=== PATIENT | female | born 1965 | race Caucasian/White ===

== ENCOUNTER 2018-06-06 17:20 | Emergency (ER) | payer BC ==
--- OUTSIDE RECORDS SUMMARY | 2018-06-06 17:24 | XMS REPORT | Clinical Summary ---
:1965 Author Organization [facility] Address [address] [place] [address] Care Team Providers Name Role Phone Soham Mitchell Primary Care Provider Allergies No Known Allergies Medications Medication Sig Dispensed Refills Start End Date Status Date lamoTRIgine Take 200 mg by 0 Active (LAMICTAL) 200 MG mouth daily . tabletIndications: at night busPIRone (BUSPAR) Take 50 mg by 0 Active 10 MG tablet mouth 4 (four) times daily as needed . ALPRAZolam (XANAX) Take 0.5 mg by 0 Active 0.5 MG tablet mouth every night as needed for Anxiety. ondansetron Take 4 mg by 0 Active (ZOFRAN) 4 MG mouth 2 (two) tablet times daily as needed for Nausea. metoclopramide HCl Take 1 tablet (10 100 tablet 0 06/16/19 Active (REGLAN) 10 MG mg total) by 9 19 tablet mouth 4 (four) times daily as needed for Nausea for up to 10 days. butalbital-acetamin Take 1 tablet by 30 tablet 0 12/01/19 ophen-caffeine mouth every 6 8 18 (FIORICET, ESGIC) (six) hours as 50-325-40 mg per needed for tablet Headaches for up to 10 days. meclizine Take 1 tablet (25 30 tablet 0 12/01/19 (ANTIVERT) 25 mg mg total) by 8 18 tablet mouth 3 (three) times daily as needed for Dizziness for up to 10 days. ciprofloxacin HCl Take 1 tablet 3 tablet 0 05/08/19 Discontinued (CIPRO) 250 MG (250 mg total) by 8 19 tablet mouth every 12 (twelve) hours. HYDROcodone-acetami Take 2 tablets by 20 tablet 0 12/06/19 nophen (NORCO mouth every 4 8 18 5-325) 5-325 mg per (four) hours as tablet needed for up to 10 days. Max Daily Amount: 12 tablets ondansetron Take 1 tablet (4 20 tablet 0 12/06/19 (ZOFRAN) 4 MG mg total) by 8 18 tablet mouth 3 (three) times daily as needed for Nausea for up to 10 days. docusate sodium Take 1 capsule 30 capsule 1 05/30/19 (COLACE) 100 MG (100 mg total) by 9 19 capsule mouth 2 (two) times daily as needed for Constipation for up to 10 days. ibuprofen Take 1 tablet 30 tablet 1 05/30/19 (ADVIL,MOTRIN) 600 (600 mg total) by 9 19 MG tablet mouth every 6 (six) hours as needed for Pain for up to 10 days. simethicone Take 1 tablet (80 30 tablet 1 05/30/19 (MYLICON) 80 MG mg total) by 9 19 chewable tablet mouth every 6 (six) hours as needed for Flatulence for up to 10 days. acetaminophen-codei Take 1 tablet by 30 tablet 0 05/30/19 ne (TYLENOL #3) mouth every 4 9 19 300-30 mg per (four) hours as tablet needed for Pain for up to 10 days. Max Daily Amount: 6 tablets ondansetron Take 1 tablet (4 20 tablet 0 05/27/19 (ZOFRAN-ODT) 4 MG mg total) by 9 19 disintegrating mouth every 8 tablet (eight) hours as needed for Nausea for up to 7 days. ibuprofen Take 800 mg by 0 06/06/19 Discontinued (ADVIL,MOTRIN) 800 mouth every 6 19 MG tablet (six) hours as needed for Pain. Active Problems Problem Noted Date Abdominal pain, unspecified abdominal location 06/01/2018 Partial small bowel obstruction 06/01/2018 Hypokalemia 06/01/2018 Endometriosis 05/19/2018 Hx of bilateral oophorectomy 05/19/2018 Hx of total hysterectomy 05/19/2018 Pelvic pain 05/19/2018 Calculus of gallbladder with acute on chronic cholecystitis without 11/22/2017 obstruction Encounters Date Type Specialty Care Team Description 06/03/2018 Orders Only General Internal Medicine 06/01/2018 - Hospital Encounter General Internal Torito Crowell Abdominal pain, unspecified abdominal location (Primary Dx); 06/05/2018 Medicine MD Seth Intractable cyclical vomiting with nausea; Abran, Small bowel obstruction (HCC); MD Homer Diarrhea, unspecified type 06/01/2018 Travel 05/19/2018 Anesthesia Event Travis Schwarz MD 05/19/2018 Surgery Laine Ballesteros ROBOTIC MD LAPAROSCOPY,RESECTION ENDOMETRIAL SINGLE INCISION (SILS) 05/19/2018 - Hospital Encounter General Internal Laine Ballesteros, 05/22/2018 Medicine 05/08/2018 Hospital Encounter Pre-Admission Resource, Oqmt Testing Preadmit Phone 01/14/2018 Outside Orders Eliezer Lee female exam with routine gynecological exam (Primary Dx); MD Kaia Encounter for screening mammogram for malignant neoplasm of breast 12/02/2017 Orders Only Dorothy Salomon 11/23/2017 Anesthesia Event Anuel Viveros MD 11/23/2017 Surgery Renato Lemus LAPAROSCOPY,CHOLECYST MD Jacobo ECTOMY W/GRAMS 11/22/2017 - Emergency General Internal Ritchie Branch Calculus of gallbladder with acute on chronic cholecystitis without obstruction (Primary Dx) ; 11/25/2017 Idalia Ferguson MD Pancreatic mass; Chetna Mendez Generalized anxiety disorder; MD Aundrea Hypokalemia; Non-intractable vomiting with nausea, unspecified vomiting type; RUQ abdominal pain 11/22/2017 Orders Only General Internal Medicine 11/20/2017 Emergency Emergency Froy Lima Dizziness (Primary Dx); Idalia Damon MD Epigastric abdominal pain; Abnormal CT of the abdomen 11/20/2017 Orders Only General Internal Medicine after 06/05/2017 Social History Tobacco Use Types Packs/Day Years Used Date Current Some Day Smoker Smokeless Tobacco: Never Used Comments: electronic cigarette for one year/// been smoking since 16 yrs old Alcohol Use Drinks/Week oz/Week Comments Yes Socially Sex Assigned at Date Recorded Not on file Job Start Date Occupation Industry Not on file Not on file Not on file Travel History Travel Start Travel End No recent travel history available. Last Filed Vital Signs Vital Sign Reading Time Taken Blood Pressure 115/75 06/05/2018 11:23 AM CDT Pulse 84 06/05/2018 11:23 AM CDT Temperature 35.9 C (96.7 F) 06/05/2018 11:23 AM CDT Respiratory Rate 18 06/05/2018 11:23 AM CDT Oxygen Saturation 96% 06/05/2018 11:23 AM CDT Inhaled Oxygen Concentration - - Weight 66.5 kg (146 lb 11.2 oz) 06/01/2018 9:23 PM CDT Height 165.1 cm (5' 5") 06/01/2018 9:23 PM CDT Body Mass Index 24.41 06/01/2018 9:23 PM CDT Plan of Treatment Not on file Implants Implanted Type Area Paraprofessional Aide Device Shelf Model / Serial Identifier Expiration / Lot Date Barrier Adh Intceed 3x4 In 4350 - [id number] IMPLANTS N/A: J &J:ETHICON 4350 / Implanted: Qty: 2 on 05/19/2018 by Laine Blalesteros MD Peritoneum / [id number] Sys Halo Obtryx Ii [id number] - [id number] IMPLANTS N/A: Bladder [place] 12/21/2020 [id number] / Implanted: Qty: 1 on 05/19/2018 by Laine Ballesteros MD SCI:UROLOGY/GY [id number] / NECOLOGY [id number] Procedures Procedure Name Priority Date/Time Associated Comments Diagnosis C. DIFFICILE [facility] Routine 06/04/2018 8:24 Results for this TOXIN PM CDT procedure are in the results section. CBC W/PLT COUNT & Routine 06/04/2018 3:39 Results for this AUTO DIFFERENTIAL AM CDT procedure are in the results section. MAGNESIUM Routine 06/04/2018 3:39 Results for this AM CDT procedure are in the results section. CBC W/PLT COUNT & Routine 06/04/2018 3:39 Results for this AUTO DIFFERENTIAL AM CDT procedure are in the results section. PHOSPHORUS Routine 06/04/2018 3:39 Results for this AM CDT procedure are in the results section. CALCIUM, IONIZED Routine 06/04/2018 3:39 Results for this AM CDT procedure are in the results section. BASIC METABOLIC PANEL Routine 06/04/2018 3:39 Results for this (7) AM CDT procedure are in the results section. ECG 12-LEAD Routine 06/03/2018 3:40 AM CDT Procedure Note - Interface, External Ris In - 06/03/2018 3:54 AM CDT Ventricular Rate 81 BPM Atrial Rate 81 BPM P-R Interval 162 ms QRS Duration 84 ms Q-T Interval 362 ms QTC Calculation(Bazett) 420 ms P [place] 61 degrees R [place] 61 degrees T [place] 59 degrees Normal sinus rhythm Normal ECG When compared with ECG of 22-NOV-2017 12:18, No significant change was found ECG 12-LEAD Routine 06/03/2018 3:40 AM Results for this CDT procedure are in the results section. CBC W/PLT COUNT & AUTO Routine 06/03/2018 3:30 AM Results for this DIFFERENTIAL CDT procedure are in the results section. TROPONIN I Routine 06/03/2018 3:30 AM Results for this CDT procedure are in the results section. CBC W/PLT COUNT & AUTO Routine 06/03/2018 3:30 AM Results for this DIFFERENTIAL CDT procedure are in the results section. MAGNESIUM Routine 06/03/2018 3:30 AM Results for this CDT procedure are in the results section. PHOSPHORUS Routine 06/03/2018 3:30 AM Results for this CDT procedure are in the results section. CALCIUM, IONIZED Routine 06/03/2018 3:30 AM Results for this CDT procedure are in the results section. BASIC METABOLIC PANEL Routine 06/03/2018 3:30 AM Results for this (7) CDT procedure are in the results section. CBC W/PLT COUNT & AUTO Routine 06/02/2018 6:38 AM Results for this DIFFERENTIAL CDT procedure are in the results section. TSH/FREE T4 IF Routine 06/02/2018 6:38 AM Results for this INDICATED CDT procedure are in the results section. MAGNESIUM Routine 06/02/2018 6:38 AM Results for this CDT procedure are in the results section. CBC W/PLT COUNT & AUTO Routine 06/02/2018 6:38 AM Results for this DIFFERENTIAL CDT procedure are in the results section. PHOSPHORUS Routine 06/02/2018 6:38 AM Results for this CDT procedure are in the results section. CALCIUM, IONIZED Routine 06/02/2018 6:38 AM Results for this CDT procedure are in the results section. BASIC METABOLIC PANEL Routine 06/02/2018 6:38 AM Results for this (7) CDT procedure are in the results section. URINALYSIS W/ STAT 06/02/2018 3:26 AM Results for this MICROSCOPIC CDT procedure are in the results section. XR ABDOMEN 1 VIEW STAT 06/01/2018 11:07 PM Results for this CDT procedure are in the results section. CT ABDOMEN/PELVIS WITH STAT 06/01/2018 4:17 PM Results for this IV CONTRAST CDT procedure are in the results section. CBC W/PLT COUNT & AUTO STAT 06/01/2018 12:28 PM Results for this DIFFERENTIAL CDT procedure are in the results section. BASIC METABOLIC PANEL STAT 06/01/2018 12:28 PM Results for this (7) CDT procedure are in the results section. CBC W/PLT COUNT & AUTO STAT 06/01/2018 12:28 PM Results for this DIFFERENTIAL CDT procedure are in the results section. ALKALINE PHOSPHATASE STAT 06/01/2018 12:28 PM Results for this CDT procedure are in the results section. LIPASE STAT 06/01/2018 12:28 PM Results for this CDT procedure are in the results section. AST (SGOT) STAT 06/01/2018 12:28 PM Results for this CDT procedure are in the results section. ALT (SGPT) STAT 06/01/2018 12:28 PM Results for this CDT procedure are in the results section. RHYTHM STRIP - SCAN 05/26/2018 5:50 AM CDT TRANSFUSION SERVICE 05/20/2018 6:24 PM REPORT - SCAN SURVEY STATISTICIAN CBC W/PLT COUNT & AUTO Routine 05/20/2018 4:55 AM Results for this DIFFERENTIAL SURVEY STATISTICIAN procedure are in the results section. COMPREHENSIVE METABOLIC Routine 05/20/2018 4:55 AM Results for this PANEL SURVEY STATISTICIAN procedure are in the results section. CBC W/PLT COUNT & AUTO Routine 05/20/2018 4:55 AM Results for this DIFFERENTIAL SURVEY STATISTICIAN procedure are in the results section. BASIC METABOLIC PANEL Routine 05/19/2018 6:16 PM Results for this (7) SURVEY STATISTICIAN procedure are in the results section. ABORH, MANUAL STAT 05/19/2018 11:16 AM Results for this SURVEY STATISTICIAN procedure are in the results section. POCT-HEMOGLOBIN METER Routine 05/19/2018 11:02 AM Results for this SURVEY STATISTICIAN procedure are in the results section. CYSTOSCOPY 05/19/2018 10:55 AM Chronic female SURVEY STATISTICIAN pelvic pain Case Notes 3 HRS PER ANTHONY Special Needs (DAVINCI XI - XI ROBOT) SLING,PUBO VAGINAL 05/19/2018 10:55 AM SURVEY STATISTICIAN Chronic female pelvic pain Case Notes 3 HRS PER ANTHONY Special Needs (DAVINCI XI - XI ROBOT) PROCEDURE W/ DAVINCI XI 05/19/2018 10:55 AM SURVEY STATISTICIAN Chronic female pelvic pain Case Notes 3 HRS PER ANTHONY Special Needs (DAVINCI XI - XI ROBOT) LYSIS,ADHESIONS PERITONEAL 05/19/2018 10:55 AM SURVEY STATISTICIAN Chronic female pelvic pain Case Notes 3 HRS PER ANTHONY Special Needs (DAVINCI XI - XI ROBOT) ROBOTIC LAPAROSCOPY,RESECTION 05/19/2018 10:55 AM SURVEY STATISTICIAN Chronic female pelvic ENDOMETRIAL SINGLE INCISION (SILS) pain Case Notes 3 HRS PER ANTHONY Special Needs (DAVINCI XI - XI ROBOT) TYPE AND SCREEN, Routine 05/19/2018 10:53 AM Results for this AUTOMATED SURVEY STATISTICIAN procedure are in the results section. RHYTHM STRIP - SCAN 11/26/2017 2:20 PM CDT MR ABDOMEN WITH/WITHOUT BRITTANY 11/25/2017 10:59 AM Results for this IV CONTRAST CDT procedure are in the results section. CBC (HEMOGRAM ONLY) Routine 11/25/2017 4:24 AM Results for this CDT procedure are in the results section. HEPATIC FUNCTION PANEL Routine 11/25/2017 4:24 AM Results for this CDT procedure are in the results section. BASIC METABOLIC PANEL Routine 11/25/2017 4:24 AM Results for this (7) CDT procedure are in the results section. CBC (HEMOGRAM ONLY) Routine 11/24/2017 4:18 AM Results for this CDT procedure are in the results section. HEPATIC FUNCTION PANEL Routine 11/24/2017 4:18 AM Results for this CDT procedure are in the results section. BASIC METABOLIC PANEL Routine 11/24/2017 4:18 AM Results for this (7) CDT procedure are in the results section. ED ECG INTERPRETATION Routine 11/23/2017 9:13 AM Results for this CDT procedure are in the results section. FL THEATRICAL AGENT IN OR 30 Routine 11/23/2017 9:05 AM Results for this MINUTE INCREMENTS CDT procedure are in the results section. TISSUE EXAM AP Routine 11/23/2017 8:56 AM Results for this CDT procedure are in the results section. LAPAROSCOPY,CHOLECYSTEC 11/23/2017 8:00 AM Cholecystitis KACI W/GRAMS CDT BLOOD CULTURE STAT 11/22/2017 6:15 PM Results for this CDT procedure are in the results section. BLOOD CULTURE STAT 11/22/2017 6:11 PM Results for this CDT procedure are in the results section. US ABDOMEN LIMITED STAT 11/22/2017 3:29 PM Results for this CDT procedure are in the results section. URINALYSIS MICROSCOPIC Routine 11/22/2017 2:04 PM Results for this CDT procedure are in the results section. URINALYSIS WITH STAT 11/22/2017 2:04 PM Results for this MICROSCOPIC IF CDT procedure are in INDICATED the results section. XR CHEST 1 VIEW STAT 11/22/2017 1:36 PM Results for this PORTABLE/BEDSIDE CDT procedure are in the results section. CBC W/PLT COUNT & AUTO STAT 11/22/2017 12:36 PM Results for this DIFFERENTIAL CDT procedure are in the results section. AMYLASE STAT 11/22/2017 12:36 PM Results for this CDT procedure are in the results section. HEPATIC FUNCTION PANEL STAT 11/22/2017 12:36 PM Results for this CDT procedure are in the results section. MAGNESIUM STAT 11/22/2017 12:36 PM Results for this CDT procedure are in the results section. B-TYPE NATRIURETIC STAT 11/22/2017 12:36 PM Results for this FACTOR (BNP) CDT procedure are in the results section. TROPONIN I STAT 11/22/2017 12:36 PM Results for this CDT procedure are in the results section. LIPASE STAT 11/22/2017 12:36 PM Results for this CDT procedure are in the results section. COMPREHENSIVE METABOLIC STAT 11/22/2017 12:36 PM Results for this PANEL CDT procedure are in the results section. CBC W/PLT COUNT & AUTO STAT 11/22/2017 12:36 PM Results for this DIFFERENTIAL CDT procedure are in the results section. ECG 12-LEAD Routine 11/22/2017 12:18 PM CDT Procedure Note - Interface, External Ris In - 11/22/2017 8:45 PM CDT Ventricular Rate 85 BPM Atrial Rate 85 BPM P-R Interval 134 ms QRS Duration 78 ms Q-T Interval 346 ms QTC Calculation(Bazett) 411 ms P [place] 78 degrees R [place] 67 degrees T [place] 69 degrees Poor data quality, interpretation may be adversely affected Normal sinus rhythm Normal ECG No previous ECGs available ECG 12-LEAD STAT 11/22/2017 12:18 PM CDT REPORT OF PROCEDURE - 11/21/2017 3:53 PM CDT ENDOSCOPY SCAN CT ABDOMEN/PELVIS WITH IV STAT 11/20/2017 3:06 PM CDT Results for this CONTRAST procedure are in the results section. CT BRAIN WITHOUT IV CONTRAST STAT 11/20/2017 3:06 PM CDT XR CHEST 1 VIEW STAT 11/20/2017 1:56 PM CDT Results for this PORTABLE/BEDSIDE procedure are in the results section. CBC W/PLT COUNT & AUTO STAT 11/20/2017 1:46 PM CDT Results for this DIFFERENTIAL procedure are in the results section. TROPONIN I STAT 11/20/2017 1:46 PM CDT URINALYSIS W/ MICROSCOPIC STAT 11/20/2017 1:46 PM CDT CBC W/PLT COUNT & AUTO STAT 11/20/2017 1:46 PM CDT Results for this DIFFERENTIAL procedure are in the results section. LIPASE STAT 11/20/2017 1:46 PM CDT COMPREHENSIVE METABOLIC PANEL STAT 11/20/2017 1:46 PM CDT after 06/05/2017 Results Clostridium difficile [facility] Toxin (06/04/2018 8:24 PM CDT) C. Difficle Toxin Negative Negative [facility] C. Difficile GDH Antigen NegativeComment: No Negative [facility] indication of Clostridium [facility] difficile infection and no colonization. Discontinue enteric isolation and therapy. Specimen Stool - Stool Narrative Performed At Testing performed by [employer] [facility] Assay.For GDH, published sensitivity of the assay is 98.7% compared to cytotoxicity testing.For Toxin AB, published sensitivity is 87.8% and specificity 99.4% compared to cytotoxicity testing. Verification of kit performance was done by the [facility] Microbiology Lab prior to clinical use. Performing Organization Address City/State/Zipcode Phone Number [facility] [address] [place] [address] [phone] CENTER Calcium, Ionized (06/04/2018 3:39 AM CDT)Only the most recent of3 resultswithin the time period is included. Calcium, Ion 1.07 (L) 1.12 - 1.27 mmol/L [facility] pH, Blood 7.40 [facility] Specimen Blood - Arm, Left Performing Organization Address City/State/Zipcode Phone Number [facility] [address] [place] [address] [place] CBC with platelet count + automated diff (06/04/2018 3:39 AM CDT)Only the most recent of7 resultswithin the time period is included. WBC 10.7 (H) 3.5 - 10.5 K/L [facility] RBC 3.85 (L) 3.93 - 5.22 M/L [facility] Hemoglobin 11.7 11.2 - 15.7 GM/DL [facility] Hematocrit 34.7 34.1 - 44.9 % [facility] MCV 90.1 79.4 - 94.8 fL [facility] MCH 30.4 25.6 - 32.2 pg [facility] MCHC 33.7 32.2 - 35.5 GM/DL [facility] RDW 12.6 11.7 - 14.4 % [facility] Platelets 234 150 - 450 K/CU MM [facility] MPV 9.9 9.4 - 12.3 fL [facility] nRBC 0 0 - 0 /100 WBC [facility] % Neutros 64 % [facility] % Lymphs 25 % [facility] % Monos 7 % [facility] % Eos 3 % [facility] % Baso 1 % [facility] # Neutros 6.87 (H) 1.56 - 6.13 K/L [facility] # Lymphs 2.66 1.18 - 3.74 K/L [facility] # Monos 0.71 (H) 0.24 - 0.36 K/L [facility] # Eos 0.34 0.04 - 0.36 K/L [facility] # Baso 0.09 (H) 0.01 - 0.08 K/L [facility] Immature Granulocytes-Relative 0 0 - 1 % [facility] Specimen Blood - Arm, Left Performing Organization Address City/[facility] Phone Number [address] [address] CENTER Phosphorus (06/04/2018 3:39 AM CDT)Only the most recent of3 resultswithin the time period is included. Phosphorus 2.8 2.3 - 4.7 mg/dL [facility] Specimen Blood - Arm, Left Performing Organization Address [facility] Phone Number [address] [address] [phone] CENTER Magnesium (06/04/2018 3:39 AM CDT)Only the most recent of4 resultswithin the time period is included. Magnesium 2.0 1.6 - 2.6 mg/dL [facility] Specimen Blood - Arm, Left Performing Organization Address [facility] Cent[facility] Phone Number [address] [address] [phone] CENTER Basic Metabolic Panel (06/04/2018 3:39 AM CDT)Only the most recent of7 resultswithin the time period is included. Sodium 139 136 - 145 meq/L [facility] Potassium 3.7 3.5 - 5.1 meq/L [facility] Chloride 109 (H) 98 - 107 meq/L [facility] CO2 23 22 - 29 meq/L [facility] BUN 6 (L) 7 - 21 mg/dL [facility] Creatinine 0.69 0.57 - 1.25 mg/dL [facility] Glucose 100 70 - 105 mg/dL [facility] Calcium 8.5 8.4 - 10.2 mg/dL [facility] EGFR 89Comment: ESTIMATED GFR IS mL/min/1.73 sq m [facility] NOT ACCURATE CREATININE [facility] CLEARANCE IN PREDICTING GLOMERULAR FILTRATION RATE. ESTIMATED GFR IS NOT APPLICABLE FOR DIALYSIS PATIENTS. Specimen Blood - Arm, Left Performing Organization Address City/State/Zipcode Phone Number [facility] [address] [place] [address] CENTER ECG 12 lead (06/03/2018 3:40 AM CDT)Only the most recent of2 resultswithin the time period is included. Narrative Performed At Ventricular Rate 81 BPM GE MUSE Atrial Rate 81 BPM P-R Interval 162 ms QRS Duration 84 ms Q-T Interval 362 ms QTC Calculation(Bazett) 420 ms P [place] 61 degrees R [place] 61 degrees T [place] 59 degrees Normal sinus rhythm Normal ECG When compared with ECG of 22-NOV-2017 12:18, No significant change was found Confirmed by Shelia FRASER BASANT ([id number]) on 06/03/2018 6:15:10 PM Procedure Note Interface, External Ris In - 06/03/2018 6:15 PM CDT Ventricular Rate 81 BPM Atrial Rate 81 BPM P-R Interval 162 ms QRS Duration 84 ms Q-T Interval 362 ms QTC Calculation(Bazett) 420 ms P [place] 61 degrees R [place] 61 degrees T [place] 59 degrees Normal sinus rhythm Normal ECG When compared with ECG of 22-NOV-2017 12:18, No significant change was found Confirmed by Shelia FRASER BASANT ([id number]) on 06/03/2018 6:15:10 PM Performing Organization Address City/State/Zipcode Phone Number [facility] Troponin I (06/03/2018 3:30 AM CDT)Only the most recent of3 resultswithin the time period is included. Troponin I <0.01 0.00 - 0.03 ng/mL [facility] Specimen Blood - Arm, Left Narrative Performed At Troponin I (TnI) levels must be interpreted [facility] in the context of the presenting symptoms and the clinical findings. Elevated TnI levels indicate myocardial damage, but are not specific for ischemic heart disease. Elevated TnI levels are seen in patients with other cardiac conditions (including myocarditis and congestive heart failure), and slight TnI elevations occur in patients with other conditions, including sepsis, renal failure, acidosis, acute neurological disease, and persistent tachyarrhythmia. Performing Organization Address [facility] Centercode Phone Number [address] [address] CENTER TSH/Free T4 If Indicated (06/02/2018 6:38 AM CDT) TSH 1.86 0.35 - 4.94 uIU/mL [facility] Specimen Blood - Arm, Left Performing Organization Address [facility] Cent[facility]odc Phone Number [address] [address] CENTER Urinalysis w/Microscopic (06/02/2018 3:26 AM CDT)Only the most recent of2 resultswithin the time period is included. Color, UA Yellow [facility] Clarity, UA Clear [facility] Specific Mcgehee, UA >1.050 (H) 1.001 - 1.[address] [facility] pH, UA 6.0 5.0 - 8.[address] [facility] Protein, UA 30 mg/dL (A) Negative [facility] Glucose, UA Negative Negative [facility] Ketones, UA 40 mg/dL (A) Negative [facility] Bilirubin, UA Negative Negative [facility] Blood, UA Trace (A) Negative [facility] Nitrite, UA Negative Negative [facility] Leukocytes, UA Trace (A) Negative [facility] Urobilinogen, UA 2.0 (H) 0.2 - 1.0 mg/dL [facility] [facility] RBC, UA 23 /HPF [facility] WBC, UA 25 /HPF [facility] Mucus Many [facility] Squam Epithel, UA 14 /HPF [facility] Specimen Source Urine, Voided [facility] Specimen Urine - Urine, Voided Performing Organization Address City/State/Zipcode Phone Number [facility] [address] [place] [address] [phone] CENTER XR abdomen / KUB 1 view (06/01/2018 11:07 PM CDT) Narrative Performed At FINAL REPORT RIS ONE VIEW ABDOMEN HISTORY: Following, abdominal pain, nasogastric tube COMPARISON: CT abdomen of 06/01/2018 FINDINGS: 2 supine AP images of the abdomen and pelvis were obtained. A nasogastric tube is present, with its tip in the region of the esophagogastric junction or proximal stomach and side-port just proximal to the expected level of the esophagogastric junction. There are multiple dilated small bowel loops in the left abdomen, which may reflect a partial small bowel obstruction. There is gas in the large intestine. There are postoperative changes in the right upper and left upper quadrants of the abdomen. There is contrast in the bladder. Signed: Rita Browning MD Report Verified Date/Time:06/01/2018 23:17:36 Reading Location: [facility] B1 C013W Consult Reading Room Procedure Note Interface, External Ris In - 06/01/2018 11:19 PM CDT FINAL REPORT ONE VIEW ABDOMEN HISTORY: Following, abdominal pain, nasogastric tube COMPARISON: CT abdomen of 06/01/2018 FINDINGS: 2 supine AP images of the abdomen and pelvis were obtained. A nasogastric tube is present, with its tip in the region of the esophagogastric junction or proximal stomach and side-port just proximal to the expected level of the esophagogastric junction. There are multiple dilated small bowel loops in the left abdomen, which may reflect a partial small bowel obstruction. There is gas in the large intestine. There are postoperative changes in the right upper and left upper quadrants of the abdomen. There is contrast in the bladder. Signed: Rita Browning MD Report Verified Date/Time: 06/01/2018 23:17:36 Reading Location: [facility] B1 C013W Consult Reading Room Performing Organization Address City/State/Zipcode Phone Number [facility] CT abdomen/pelvis with IV contrast (06/01/2018 4:17 PM CDT)Only the most recent of2 resultswithin the time period is included. Narrative Performed At FINAL REPORT [facility] DOSE REDUCTION: The examination was performed according to departmental dose-optimization program which includes automated exposure control, adjustment of the mA and/or kV according to patient size and/or use of iterative reconstruction technique. TECHNIQUE: CT of the abdomen and pelvis with intravenous contrast. COMPARISON: CT of the abdomen and pelvis, 11/20/2017 Discussion: Lung bases are clear. There is mildly decreased liver density suggestive of fatty infiltration. No suspicious liver lesion. Spleen, pancreas, adrenal glands are unremarkable. Status post cholecystectomy. No biliary ductal dilatation. Left renal hypodensities, too small to characterize, may be simple cysts. Otherwise kidneys are unremarkable. Postsurgical changes in the stomach. Mild dilatation of several mid small bowel loops measuring up to 2.5 cm. There is an apparent area of transition in the distal small bowel in the lower abdomen and midline. Additionally there are some areas of small bowel wall thickening distally as well. Scattered fluid levels in the colon. No findings of colonic obstruction. Scattered colonic diverticula without findings of diverticulitis. Appendix is not seen. No free extraluminal air. No bowel wall pneumatosis. Scattered areas of stranding. No organized fluid collection or abscess. No ascites. Vascular calcifications are noted. Ectasia of the infrarenal aorta measuring by 2.4 cm is stable. Uterus is surgically absent. No suspicious adnexal masses. Urinary bladder is unremarkable. No acute skeletal abnormality. IMPRESSION: 1. Mild dilatation of several small bowel loops with apparent transition distally. Additional areas of small bowel wall thickening. Findings may represent combination of enteritis and partial small bowel obstruction. 2. Postsurgical changes in the stomach. Status post cholecystectomy. Signed: Chad Adams MD Report Verified Date/Time:06/01/2018 16:39:15 Reading Location: [facility] Radiology Reading Room Procedure Note Interface, External Ris In - 06/01/2018 4:41 PM CDT FINAL REPORT DOSE REDUCTION: The examination was performed according to departmental dose-optimization program which includes automated exposure control, adjustment of the mA and/or kV according to patient size and/or use of iterative reconstruction technique. TECHNIQUE: CT of the abdomen and pelvis with intravenous contrast. COMPARISON: CT of the abdomen and pelvis, 11/20/2017 Discussion: Lung bases are clear. There is mildly decreased liver density suggestive of fatty infiltration. No suspicious liver lesion. Spleen, pancreas, adrenal glands are unremarkable. Status post cholecystectomy. No biliary ductal dilatation. Left renal hypodensities, too small to characterize, may be simple cysts. Otherwise kidneys are unremarkable. Postsurgical changes in the stomach. Mild dilatation of several mid small bowel loops measuring up to 2.5 cm. There is an apparent area of transition in the distal small bowel in the lower abdomen and midline. Additionally there are some areas of small bowel wall thickening distally as well. Scattered fluid levels in the colon. No findings of colonic obstruction. Scattered colonic diverticula without findings of diverticulitis. Appendix is not seen. No free extraluminal air. No bowel wall pneumatosis. Scattered areas of stranding. No organized fluid collection or abscess. No ascites. Vascular calcifications are noted. Ectasia of the infrarenal aorta measuring by 2.4 cm is stable. Uterus is surgically absent. No suspicious adnexal masses. Urinary bladder is unremarkable. No acute skeletal abnormality. IMPRESSION: 1. Mild dilatation of several small bowel loops with apparent transition distally. Additional areas of small bowel wall thickening. Findings may represent combination of enteritis and partial small bowel obstruction. 2. Postsurgical changes in the stomach. Status post cholecystectomy. Signed: Chad Adams MD Report Verified Date/Time: 06/01/2018 16:39:15 Reading Location: [facility] Radiology Reading Room Performing Organization Address City/State/[facility] Phone Number [facility] ALT (SGPT) (06/01/2018 12:28 PM CDT) ALT 21Comment: Specimen slightly 6 - 55 U/L [facility] hemolyzed CENTER Specimen Blood Performing Organization Address [facility] Phone Number [address] [address] [phone] [place] AST (SGOT) (06/01/2018 12:28 PM CDT) AST 17Comment: Specimen slightly 5 - 34 U/L [facility] hemolyzed [place] Specimen Blood Performing Organization Address City/[facility] Phone Number [address] [address] [place] Alkaline phosphatase (06/01/2018 12:28 PM CDT) Alkaline Phosphatase 99 40 - 150 U/L [facility] Specimen Blood Performing Organization Address [facility] Phone Number [address] [address] [phone] CENTER Lipase (06/01/2018 12:28 PM CDT)Only the most recent of3 resultswithin the time period is included. Lipase 18 8 - 78 U/L [facility] Specimen Blood Performing Organization Address [facility] Phone Number [address] [address] CENTER RHYTHM STRIP - SCAN (05/26/2018 5:50 AM CDT)Only the most recent of2 resultswithin the time period is included. Narrative Performed At TRANSFUSION SERVICE REPORT - SCAN (05/20/2018 6:24 PM SURVEY STATISTICIAN) Narrative Performed At Comprehensive metabolic panel (05/20/2018 4:55 AM SURVEY STATISTICIAN)Only the most recent of3 resultswithin the time period is included. Protein, Total 5.5 (L) 6.0 - 8.3 gm/dL [facility] Albumin 3.4 (L) 3.5 - 5.0 g/dL [facility] Alkaline Phosphatase 69 40 - 150 U/L [facility] Total Bilirubin 0.8 0.2 - 1.2 mg/dL [facility] Sodium 134 (L) 136 - 145 meq/L [facility] Potassium 4.1 3.5 - 5.1 meq/L [facility] Chloride 107 98 - 107 meq/L [facility] CO2 21 (L) 22 - 29 meq/L [facility] BUN 12 7 - 21 mg/dL [facility] Creatinine 0.69 0.57 - 1.25 mg/dL [facility] Glucose 100 70 - 105 mg/dL [facility] Calcium 7.8 (L) 8.4 - 10.2 mg/dL [facility] AST 14 5 - 34 U/L [facility] ALT 9 6 - 55 U/L [facility] EGFR 89Comment: ESTIMATED GFR mL/min/1.73 sq m [facility] IS NOT ACCURATE [facility] CREATININE CLEARANCE IN PREDICTING GLOMERULAR FILTRATION RATE. ESTIMATED GFR IS NOT APPLICABLE FOR DIALYSIS PATIENTS. Specimen Blood Performing Organization Address City/State/Zipcode Phone Number [facility] [address] [place] [address] CENTER ABORH, manual (05/19/2018 11:16 AM SURVEY STATISTICIAN) ABO Grouping O [facility] Rh Factor NEG [facility] Specimen Blood Performing Organization Address City/[facility]/Zipcode Phone Number [facility] [address] [place] [phone] POC-Hemoglobin meter (05/19/2018 11:02 AM SURVEY STATISTICIAN) POC-Hemoglobin Meter 14.4Comment: TESTED AT 12.0 - 15.0 g/dL [facility] [address] [place] [phone] Specimen Blood Performing Organization Address City/[facility] Centercode Phone Number [address] [address] CENTER Type and screen, automated (05/19/2018 10:53 AM SURVEY STATISTICIAN) ABO/RH AUTOMATED (BEAKER) O NEGATIVE [facility] Ab Scrn NEGATIVE [facility] Specimen Blood Performing Organization Address [facility] Centercode Phone Number [address] [address] MR abdomen without & with IV contrast (11/25/2017 10:59 AM CDT) Narrative Performed At FINAL REPORT Spinal Simplicity [facility] Technique: Multisequence and multiplanar MRI of the abdomen performed with and without gadolinium contrast. COMPARISON: CT of the abdomen and pelvis, 11/20/2016 Discussion: An area of early enhancement in the medial left hepatic lobe without washout likely represents an area of altered vascular perfusion . Small liver cysts are seen. Otherwise liver is unremarkable. Spleen and adrenal glands are unremarkable. There is fatty infiltration of the pancreas, particularly in the region of the uncinate process. There is no suspicious pancreatic mass. Status post cholecystectomy. Some stranding in the gallbladder fossa likely due to recent postsurgical change. No well-defined fluid collection or abscess. Bile duct is of normal caliber. No definite intraductal filling defects are seen. Renal cyst otherwise kidneys are unremarkable. No fluid collections. No lymphadenopathy except for a few subcentimeter upper abdominal lymph nodes which are likely reactive. Mild infrarenal abdominal aortic ectasia up to 2.4 cm. Hepatic and portal veins are patent. Main portal vein measures 13 mm. Splenic vein is patent. Scattered colonic diverticula otherwise visualized bowel is grossly unremarkable. There are trace pleural effusions with bibasilar atelectasis. Some stranding along the right abdominal wall soft tissues likely due to recent surgery. No acute skeletal abnormality. IMPRESSION: 1. Fatty infiltration of the pancreas.No suspicious pancreatic mass. 2. Status post cholecystectomy. Nonspecific stranding in the gallbladder fossa. Signed: Chad Adams MD Report Verified Date/Time:11/25/2017 17:24:49 Reading Location: [facility] Radiology Reading Room Procedure Note Interface, External Ris In - 11/25/2017 5:27 PM CDT FINAL REPORT Technique: Multisequence and multiplanar MRI of the abdomen performed with and without gadolinium contrast. COMPARISON: CT of the abdomen and pelvis, 11/20/2016 Discussion: An area of early enhancement in the medial left hepatic lobe without washout likely represents an area of altered vascular perfusion . Small liver cysts are seen. Otherwise liver is unremarkable. Spleen and adrenal glands are unremarkable. There is fatty infiltration of the pancreas, particularly in the region of the uncinate process. There is no suspicious pancreatic mass. Status post cholecystectomy. Some stranding in the gallbladder fossa likely due to recent postsurgical change. No well-defined fluid collection or abscess. Bile duct is of normal caliber. No definite intraductal filling defects are seen. Renal cyst otherwise kidneys are unremarkable. No fluid collections. No lymphadenopathy except for a few subcentimeter upper abdominal lymph nodes which are likely reactive. Mild infrarenal abdominal aortic ectasia up to 2.4 cm. Hepatic and portal veins are patent. Main portal vein measures 13 mm. Splenic vein is patent. Scattered colonic diverticula otherwise visualized bowel is grossly unremarkable. There are trace pleural effusions with bibasilar atelectasis. Some stranding along the right abdominal wall soft tissues likely due to recent surgery. No acute skeletal abnormality. IMPRESSION: 1. Fatty infiltration of the pancreas. No suspicious pancreatic mass. 2. Status post cholecystectomy. Nonspecific stranding in the gallbladder fossa. Signed: Chad Adams MD Report Verified Date/Time: 11/25/2017 17:24:49 Reading Location: [facility] Radiology Reading Room Performing Organization Address City/State/Zipcode Phone Number [facility] CBC (Hemogram only) (11/25/2017 4:24 AM CDT)Only the most recent of2 resultswithin the time period is included. WBC 7.3 3.5 - 10.5 K/L [facility] RBC 3.66 (L) 3.93 - 5.22 M/L [facility] Hemoglobin 11.0 (L) 11.2 - 15.7 GM/DL [facility] Hematocrit 33.0 (L) 34.1 - 44.9 % [facility] MCV 90.2 79.4 - 94.[address] [facility] MCH 30.1 25.6 - 32.[address] [facility] MCHC 33.3 32.2 - 35.5 GM/DL [facility] RDW 11.9 11.7 - 14.4 % [facility] Platelets 179 150 - 450 K/CU MM [facility] MPV 9.8 9.4 - 12.[address] [facility] nRBC 0 0 - 0 /100 WBC [facility] Specimen Blood - Arm, Left Performing Organization Address City/[facility]/Zipcode Phone Number [facility] [address] [place] [address] CENTER Hepatic function panel (11/25/2017 4:24 AM CDT)Only the most recent of3 resultswithin the time period is included. Protein, Total 5.7 (L) 6.0 - 8.3 gm/dL [facility] Albumin 3.4 (L) 3.5 - 5.0 g/dL [facility] Total Bilirubin 0.4 0.2 - 1.2 mg/dL [facility] Bilirubin, Direct 0.2 0.1 - 0.5 mg/dL [facility] Alkaline Phosphatase 78 40 - 150 U/L [facility] AST 23 5 - 34 U/L [facility] ALT 32 6 - 55 U/L [facility] Specimen Blood - Arm, Left Performing Organization Address City/State/Zipcode Phone Number [facility] [address] [place] [address] CENTER ED ECG Interpretation (11/23/2017 9:13 AM CDT) Narrative Performed At Ritchie Branch MD 11/23/20179:13 AM ECG/EKG Interpretation Date/Time: 11/22/2017 12:18 PM Performed by: RITCHIE BRANCH Authorized by: RITCHIE BRANCH The ECG was interpreted by ED physician. The ECG is interpreted as sinus rhythm. Rate is normal rate. Heart rate is 85 BPM. Conduction: conduction normal. ST segments normal. T waves normal. [place] is normal. Other findings: no other findings. Clinical Impression: normal ECGECG reviewed and does not meet STEMI criteria. Patient tolerance: Patient tolerated the procedure well with no immediate complications [place] chief radiologic technologist in or 30 minute increments (11/23/2017 9:05 AM CDT) Narrative Performed At FINAL REPORT [facility] Fluoroscopy. History: Intraoperative. Findings:Radiologist was not present for the exam.Fluoroscopy was not performed by the undersigned.Five images from intraoperative fluoroscopy demonstrate intraoperative cholangiogram. Fluoroscopy time is 36 seconds. IMPRESSION: Intraoperative exam as described above. Signed: Prema Tate MD Report Verified Date/Time:11/23/2017 09:28:32 Reading Location: [facility] B1 C013Y CT Body Reading Room Procedure Note Interface, External Ris In - 11/23/2017 9:30 AM CDT FINAL REPORT Fluoroscopy. History: Intraoperative. Findings: Radiologist was not present for the exam. Fluoroscopy was not performed by the undersigned. Five images from intraoperative fluoroscopy demonstrate intraoperative cholangiogram. Fluoroscopy time is 36 seconds. IMPRESSION: Intraoperative exam as described above. Signed: Prema Tate MD Report Verified Date/Time: 11/23/2017 09:28:32 Reading Location: [facility] B1 C013Y CT Body Reading Room Performing Organization Address City/State/Zipcode Phone Number [facility] Tissue Exam (11/23/2017 8:56 AM CDT) Case Report Surgical Pathology Report Case: [id number] [facility] Authorizing Provider:Renato Lemus, Collected: 11/23/2017 0856 [facility] Ordering Location: [facility] PERIOPERATIVE Received: 11/24/2017 0810 SERVICES Pathologist: Vanessa Rayo MD Specimen:Gallbladder DIAGNOSIS GALLBLADDER, CHOLECYSTECTOMY: [facility] - MILD SUBACUTE AND CHRONIC CHOLECYSTITIS [facility] Signing Pathologist Direct Phone Line: [phone] CPT Code(s) [address] [facility] CLINICAL HISTORY Cholecystitis [facility] SPECIMEN SOURCE Gallbladder [facility] GROSS DESCRIPTION The specimen is received in formalin-filled container and labeled with the patient's information and labeled "gallbladder" consists of an intact gallbladder measuring 6.5 x 4 cm with a gallbladder wall [facility] thickness up to 0.3 cm. Gallbladder lumen is filled with green thin fluid with no stones present. The mucosa is lima-red and velvety with no masses. [facility] Section code: A1, margin en face; A2, gallbladder wall. CG/pl MICROSCOPIC DESCRIPTION Performed. [facility] Specimen Tissue - Gallbladder Performing Organization Address City/[facility]/Zipcode Phone Number [facility] [address] [place] [address] [phone] CENTER Blood culture (11/22/2017 6:15 PM CDT)Only the most recent of2 resultswithin the time period is included. Result No growth in [address] [facility] Specimen Blood - Arm, Left Performing Organization Address City/State/Zipcode Phone Number [facility] [address] [place], [place] [phone] CENTER abdomen limited (11/22/2017 3:29 PM CDT) Narrative Performed At FINAL REPORT [facility] Ultrasound of the Right Upper Quadrant of the Abdomen, 11/22/2017 Clinical History:Right upper quadrant pain. Discussion: Sonographic evaluation of the right upper quadrant of the abdomen is performed. Liver: 11.9 cm. in length at the right midclavicular line, normal in size.Normal echogenicity.Homogeneous echotexture.No mass. Main portal vein diameter 0.8 cm. Biliary tree:Common duct 4 mm.No biliary dilatation. Gallbladder: Minimal gallbladder wall thickening. Trace. Cholecystic fluid. Mild gallbladder distention. No gallstones. Absent sonographic Araujo sign. Pancreas: Head, body, and proximal tail unremarkable. Ascites:None. Right kidney:10.0 cm in length, normal in size, with cortical thickness of 1.7 cm.Normal cortical echogenicity.There is a 1.2 cm anechoic cyst at the interpolar aspect.No shadowing calculus. No hydronephrosis. IVC/Aorta:Segments partially seen.Unremarkable. Impression: Distended gallbladder with mild wall thickening and pericholecystic fluid. Absent sonographic Araujo sign. Findings are concerning for cholecystitis. Nuclear medicine cholescintigraphy may be useful. Reportedly, MRCP is pending at time of dictation. Signed: Prema Tate MD Report Verified Date/Time:11/22/2017 16:44:00 Reading Location: [address] Body Reading Room Procedure Note Interface, External Ris In - 11/22/2017 4:46 PM CDT FINAL REPORT Ultrasound of the Right Upper Quadrant of the Abdomen, 11/22/2017 Clinical History: Right upper quadrant pain. Discussion: Sonographic evaluation of the right upper quadrant of the abdomen is performed. Liver: 11.9 cm. in length at the right midclavicular line, normal in size. Normal echogenicity. Homogeneous echotexture. No mass. Main portal vein diameter 0.8 cm. Biliary tree: Common duct 4 mm. No biliary dilatation. Gallbladder: Minimal gallbladder wall thickening. Trace. Cholecystic fluid. Mild gallbladder distention. No gallstones. Absent sonographic Araujo sign. Pancreas: Head, body, and proximal tail unremarkable. Ascites: None. Right kidney: 10.0 cm in length, normal in size, with cortical thickness of 1.7 cm. Normal cortical echogenicity. There is a 1.2 cm anechoic cyst at the interpolar aspect. No shadowing calculus. No hydronephrosis. IVC/Aorta: Segments partially seen. Unremarkable. Impression: Distended gallbladder with mild wall thickening and pericholecystic fluid. Absent sonographic Araujo sign. Findings are concerning for cholecystitis. Nuclear medicine cholescintigraphy may be useful. Reportedly, MRCP is pending at time of dictation. Signed: Prema Tate MD Report Verified Date/Time: 11/22/2017 16:44:00 Reading Location: [facility] C013Y CT Body Reading Room Performing Organization Address City/[facility]/Zipcode Phone Number [facility] Urinalysis Microscopic Only (11/22/2017 2:04 PM CDT) RBC, UA 1 /HPF [facility] WBC, UA 25 /HPF [facility] Mucus Moderate [facility] Squam Epithel, UA 3 /HPF [facility] Crystals, Urine Rare [facility] Specimen Urine - Urine, Voided Performing Organization Address [facility]/Zipcode Phone Number [address] [address] [phone] CENTER Urinalysis with Microscopic If Indicated (11/22/2017 2:04 PM CDT) Color, UA Yellow [facility] Clarity, UA Clear [facility] Specific [place]ge[place], UA 1.017 1.001 - 1.[address] [facility] pH, UA 5.5 5.0 - 8.[address] [facility] Protein, UA Negative Negative [facility] Glucose, UA Negative Negative [facility] Ketones, UA Negative Negative [facility] Bilirubin, UA Negative Negative [facility] Blood, UA Negative Negative [facility] Nitrite, UA Negative Negative [facility] Leukocytes, UA Large (A) Negative [facility] Urobilinogen, UA 0.2 0.2 - 1.0 mg/dL [facility] Specimen Source [facility] Specimen Urine - Urine, Voided Performing Organization Address City/State/Zipcode Phone Number [facility] [address] [place] [address] CENTER XR chest 1 view portable / bedside (11/22/2017 1:36 PM CDT)Only the most recent of2 resultswithin the time period is included. Narrative Performed At FINAL REPORT GE RIS INDICATION: chest pain TECHNIQUE: Chest radiograph, single view, portable technique. FINDINGS / IMPRESSION: There is no evidence of pneumonia or pulmonary edema. Cardiac and mediastinal contours are unremarkable. No pleural effusion or pneumothorax is demonstrated. Osseous structures are unremarkable. Signed: Gigi Crews MD Report Verified Date/Time:11/22/2017 13:49:34 Reading Location: [facility] [id number] Ortho Consult Reading Room Procedure Note Interface, External Ris In - 11/22/2017 3:17 PM CDT FINAL REPORT INDICATION: chest pain TECHNIQUE: Chest radiograph, single view, portable technique. FINDINGS / IMPRESSION: There is no evidence of pneumonia or pulmonary edema. Cardiac and mediastinal contours are unremarkable. No pleural effusion or pneumothorax is demonstrated. Osseous structures are unremarkable. Signed: Gigi Crews MD Report Verified Date/Time: 11/22/2017 13:49:34 Reading Location: [facility] [id number] Ortho Consult Reading Room Performing Organization Address City/[facility]/Zipcode Phone Number RIS B-type Natriuretic Factor (BNP) (11/22/2017 12:36 PM CDT) BNP 26 0 - 100 pg/mL [facility] Specimen Blood - Arm, Right Performing Organization Address City/[facility] Phone Number [address] [address] CENTER Amylase (11/22/2017 12:36 PM CDT) Amylase 54Comment: Specimen slightly 25 - 125 U/L [facility] hemolyzed [facility] Specimen Blood - Arm, Right Performing Organization Address [facility] Phone Number [address] [address] [phone] CENTER EKG-SCANNED (11/21/2017 3:53 PM CDT) Narrative Performed At CT brain without IV contrast (11/20/2017 3:06 PM CDT) Narrative Performed At FINAL REPORT [facility] CT head without contrast 11/20/2017 3:15 PM CLINICAL HISTORY: dizziness, lightheaded, near syncope TECHNIQUE: Axial noncontrast CT images through the head were obtained. This examination was performed according to our departmental dose optimization program, which includes automated exposure control, adjustment of the mA and/or kV according to patient size, and/or use of iterated reconstruction technique. COMPARISON: None available FINDINGS: There is no hemorrhage, extra-axial collection, mass, hydrocephalus, or midline shift. There is no CT evidence for cerebral infarction. The visualized paranasal sinuses and mastoid air cells are well aerated. The skull is intact. IMPRESSION: No intracranial hemorrhage or mass effect. If concern for acute pathology persists, further evaluation with MRI is recommended. Signed: Renato Dupree MD Report Verified Date/Time:11/20/2017 15:16:39 Reading Location: [facility] Radiology Reading Room Procedure Note Interface, External Ris In - 11/20/2017 3:18 PM CDT FINAL REPORT CT head without contrast 11/20/2017 3:15 PM CLINICAL HISTORY: dizziness, lightheaded, near syncope TECHNIQUE: Axial noncontrast CT images through the head were obtained. This examination was performed according to our departmental dose optimization program, which includes automated exposure control, adjustment of the mA and/or kV according to patient size, and/or use of iterated reconstruction technique. COMPARISON: None available FINDINGS: There is no hemorrhage, extra-axial collection, mass, hydrocephalus, or midline shift. There is no CT evidence for cerebral infarction. The visualized paranasal sinuses and mastoid air cells are well aerated. The skull is intact. IMPRESSION: No intracranial hemorrhage or mass effect. If concern for acute pathology persists, further evaluation with MRI is recommended. Signed: Rneato Dupree MD Report Verified Date/Time: 11/20/2017 15:16:39 Reading Location: [facility] Radiology Reading Room Performing Organization Address City/State/Zipcode Phone Number GE RIS after 06/05/2017 Insurance Payer Benefit Plan / Group Subscriber ID Type Phone Address BLUE CROSS/BLUE BCBS PPO POS EPO xxxxxxxxxxxx PPO [phone] [address] [place] [address] OTHER-COMMERCIAL GENERIC COMMERCIAL xxxxxxx Advance Directives For more information, please contact:[address] [phone] Code Status Date Activated Date Inactivated Comments Full Code 06/01/2018 8:09 PM 06/05/2018 3:06 PM This code status was determined by: Patient Full Code 05/19/2018 8:35 PM 05/22/2018 11:40 AM This code status was determined by: Patient Full Code 05/19/2018 10:30 AM 05/19/2018 8:35 PM This code status was determined by: Patient Full Code 11/22/2017 5:48 PM 11/23/2017 10:57 AM This code status was determined by: Patient
--- OUTSIDE RECORDS SUMMARY | 2018-06-06 17:25 | XMS REPORT ---
:1965 [facility] Address [address] [place] [address] Care Team Providers Name Role Phone PRATIBHA MENJIVAR BRANDON Unavailable Unavailable LA NENA, RADHAANGELA Unavailable Unavailable ALEJANDRO ISRAEL Unavailable Unavailable COOPER, TEN PEDERSEN Unavailable Unavailable Problems This patient has no known problems. Allergies, Adverse Reactions, Alerts This patient has no known allergies or adverse reactions. Medications This patient has no known medications. Results Test Description Test Time Test Comments Text Results Atomic Results Result Comments C. DIFFICILE GDH TOXIN 2018-06-05 11:09:00 Test Item Value Reference Range Comments CDT TOXIN (test csjv=[id number]) Negative Negative CDT GDH ANTIGEN (test Negative Negative No indication of Clostridium gudi=[id number]) difficile infection and no colonization. Discontinue enteric isolation and therapy. Testing performed by Alere Rapid Cassette Assay. For GDH, published sensitivity of the assay is 98.7% compared to cytotoxicity testing. For Toxin AB, published sensitivity is 87.8% and specificity 99.4% compared to cytotoxicity testing.Verification of kit performance was done by the [facility] Microbiology Lab prior to clinical use.CALCIUM, [id number] 05:34:00 Test Item Value Reference Range Comments CALCIUM IONIZED (BEAKER) (test vebr=666) 1.07 mmol/L 1.12-1.27 PH, BLOOD (BEAKER) (test kgyn=4949) 7.40 [id number] 04:42:00 Test Item Value Reference Range Comments PHOSPHORUS (BEAKER) (test tvhc=874) 2.8 mg/dL 2.3-4.7 [id number] 04:42:00 Test Item Value Reference Range Comments MAGNESIUM (BEAKER) (test enlu=711) 2.0 mg/dL 1.6-2.6 BASIC METABOLIC [id number] 04:42:00 Test Item Value Reference Range Comments SODIUM (BEAKER) (test 139 meq/L 136-145 dust=892) POTASSIUM (BEAKER) (test 3.7 meq/L 3.5-5.1 cxef=750) CHLORIDE (BEAKER) (test 109 meq/L 98-107 doad=577) CO2 (BEAKER) (test 23 meq/L 22-29 vwjr=840) BLOOD UREA NITROGEN 6 mg/dL 7-21 (BEAKER) (test wxtz=634) CREATININE (BEAKER) (test 0.69 mg/dL 0.57-1.25 mkai=344) GLUCOSE RANDOM (BEAKER) 100 mg/dL 70-105 (test wgyo=226) CALCIUM (BEAKER) (test 8.5 mg/dL 8.4-10.2 qafb=786) EGFR (BEAKER) (test 89 mL/min/1.73 sq m ESTIMATED GFR IS NOT izcb=4219) ACCURATE CREATININE CLEARANCE IN PREDICTING GLOMERULAR FILTRATION RATE. ESTIMATED GFR IS NOT APPLICABLE FOR DIALYSIS PATIENTS. CBC W/PLT COUNT & AUTO [id number] 04:07:00 Test Item Value Reference Range Comments WHITE BLOOD CELL COUNT (BEAKER) (test tory=992) 10.7 K/ L 3.5-10.5 RED BLOOD CELL COUNT (BEAKER) (test vvru=850) 3.85 M/ L 3.93-5.22 HEMOGLOBIN (BEAKER) (test hprm=345) 11.7 GM/DL 11.2-15.7 HEMATOCRIT (BEAKER) (test jeen=010) 34.7 % 34.1-44.9 MEAN CORPUSCULAR VOLUME (BEAKER) (test evbz=243) 90.1 fL 79.4-94.8 MEAN CORPUSCULAR HEMOGLOBIN (BEAKER) (test 30.4 pg 25.6-32.2 nraw=723) MEAN CORPUSCULAR HEMOGLOBIN CONC (BEAKER) (test 33.7 GM/DL 32.2-35.5 qlkn=620) RED CELL DISTRIBUTION WIDTH (BEAKER) (test 12.6 % 11.7-14.4 wigz=639) PLATELET COUNT (BEAKER) (test iegs=999) 234 K/CU MM 150-450 MEAN PLATELET VOLUME (BEAKER) (test ovgo=245) 9.9 fL 9.4-12.3 NUCLEATED RED BLOOD CELLS (BEAKER) (test 0 /100 WBC 0-0 itpn=185) NEUTROPHILS RELATIVE PERCENT (BEAKER) (test 64 % mvdu=505) LYMPHOCYTES RELATIVE PERCENT (BEAKER) (test 25 % ebcl=920) MONOCYTES RELATIVE PERCENT (BEAKER) (test 7 % dory=551) EOSINOPHILS RELATIVE PERCENT (BEAKER) (test 3 % edoi=495) BASOPHILS RELATIVE PERCENT (BEAKER) (test 1 % gaqw=197) NEUTROPHILS ABSOLUTE COUNT (BEAKER) (test 6.87 K/ L 1.56-6.13 qzsm=210) LYMPHOCYTES ABSOLUTE COUNT (BEAKER) (test 2.66 K/ L 1.18-3.74 zizv=614) MONOCYTES ABSOLUTE COUNT (BEAKER) (test 0.71 K/ L 0.24-0.36 rspx=121) EOSINOPHILS ABSOLUTE COUNT (BEAKER) (test 0.34 K/ L 0.04-0.36 dufe=609) BASOPHILS ABSOLUTE COUNT (BEAKER) (test 0.09 K/ L 0.01-0.08 wyea=832) IMMATURE GRANULOCYTES-RELATIVE PERCENT (BEAKER) 0 % 0-1 (test obed=5888) CALCIUM, [id number] 04:16:00 Test Item Value Reference Range Comments CALCIUM IONIZED (BEAKER) (test axru=168) 1.05 mmol/L 1.12-1.27 PH, BLOOD (BEAKER) (test pfyk=3484) 7.35 TROPONIN [id number] 04:08:00 Test Item Value Reference Range Comments TROPONIN I (BEAKER) (test gahd=689) < ng/mL 0.00-0.03 Troponin I (TnI) levels must be interpreted in the context of the presenting symptoms and the clinical findings. Elevated TnI levels indicate myocardial damage, but are not specific for ischemic heart disease. Elevated TnI levels are seen in patients with other cardiac conditions (including myocarditis and congestive heart failure), and slight TnI elevations occur in patients with other conditions, including sepsis, renal failure, acidosis, acute neurological disease, and persistent tachyarrhythmia.[id number] 04:01:00 Test Item Value Reference Range Comments PHOSPHORUS (BEAKER) (test gscq=933) 2.4 mg/dL 2.3-4.7 [id number] 04:01:00 Test Item Value Reference Range Comments MAGNESIUM (BEAKER) (test acsn=483) 1.6 mg/dL 1.6-2.6 BASIC METABOLIC [id number] 04:01:00 Test Item Value Reference Range Comments SODIUM (BEAKER) (test 139 meq/L 136-145 afwk=633) POTASSIUM (BEAKER) (test 3.6 meq/L 3.5-5.1 fhyg=495) CHLORIDE (BEAKER) (test 108 meq/L 98-107 ldxq=799) CO2 (BEAKER) (test 25 meq/L 22-29 pbvn=333) BLOOD UREA NITROGEN 8 mg/dL 7-21 (BEAKER) (test tcsm=198) CREATININE (BEAKER) (test 0.64 mg/dL 0.57-1.25 dfvg=742) GLUCOSE RANDOM (BEAKER) 106 mg/dL 70-105 (test nvlw=942) CALCIUM (BEAKER) (test 8.5 mg/dL 8.4-10.2 kdpx=258) EGFR (BEAKER) (test 97 mL/min/1.73 sq m ESTIMATED GFR IS NOT ibcl=2777) ACCURATE CREATININE CLEARANCE IN PREDICTING GLOMERULAR FILTRATION RATE. ESTIMATED GFR IS NOT APPLICABLE FOR DIALYSIS PATIENTS. CBC W/PLT COUNT & AUTO [id number] 03:46:00 Test Item Value Reference Range Comments WHITE BLOOD CELL COUNT (BEAKER) (test jvat=691) 9.7 K/ L 3.5-10.5 RED BLOOD CELL COUNT (BEAKER) (test tsxr=413) 4.05 M/ L 3.93-5.22 HEMOGLOBIN (BEAKER) (test bkna=567) 12.2 GM/DL 11.2-15.7 HEMATOCRIT (BEAKER) (test temm=811) 37.1 % 34.1-44.9 MEAN CORPUSCULAR VOLUME (BEAKER) (test ifgb=871) 91.6 fL 79.4-94.8 MEAN CORPUSCULAR HEMOGLOBIN (BEAKER) (test 30.1 pg 25.6-32.2 jhvy=625) MEAN CORPUSCULAR HEMOGLOBIN CONC (BEAKER) (test 32.9 GM/DL 32.2-35.5 edgc=389) RED CELL DISTRIBUTION WIDTH (BEAKER) (test 12.7 % 11.7-14.4 ftgg=833) PLATELET COUNT (BEAKER) (test kohh=873) 241 K/CU MM 150-450 MEAN PLATELET VOLUME (BEAKER) (test cyuo=523) 9.7 fL 9.4-12.3 NUCLEATED RED BLOOD CELLS (BEAKER) (test 0 /100 WBC 0-0 sjhw=369) NEUTROPHILS RELATIVE PERCENT (BEAKER) (test 57 % burs=319) LYMPHOCYTES RELATIVE PERCENT (BEAKER) (test 32 % zsgw=604) MONOCYTES RELATIVE PERCENT (BEAKER) (test 8 % vwrd=955) EOSINOPHILS RELATIVE PERCENT (BEAKER) (test 3 % lgun=991) BASOPHILS RELATIVE PERCENT (BEAKER) (test 1 % wcki=730) NEUTROPHILS ABSOLUTE COUNT (BEAKER) (test 5.48 K/ L 1.56-6.13 zunm=388) LYMPHOCYTES ABSOLUTE COUNT (BEAKER) (test 3.05 K/ L 1.18-3.74 uxly=102) MONOCYTES ABSOLUTE COUNT (BEAKER) (test 0.73 K/ L 0.24-0.36 qwtl=571) EOSINOPHILS ABSOLUTE COUNT (BEAKER) (test 0.32 K/ L 0.04-0.36 uwch=414) BASOPHILS ABSOLUTE COUNT (BEAKER) (test 0.06 K/ L 0.01-0.08 dxqd=326) IMMATURE GRANULOCYTES-RELATIVE PERCENT (BEAKER) 0 % 0-1 (test gidn=5384) [id number] 09:44:00 Test Item Value Reference Range Comments MAGNESIUM (BEAKER) (test 2.0 mg/dL 1.6-2.6 Specimen slightly hemolyzed gkds=784) [id number] 09:44:00 Test Item Value Reference Range Comments PHOSPHORUS (BEAKER) (test 3.1 mg/dL 2.3-4.7 Specimen slightly hemolyzed oywr=895) BASIC METABOLIC [id number] 09:44:00 Test Item Value Reference Range Comments SODIUM (BEAKER) (test 138 meq/L 136-145 ymmz=265) POTASSIUM (BEAKER) (test 3.8 meq/L 3.5-5.1 Specimen slightly lhbb=959) hemolyzed CHLORIDE (BEAKER) (test 107 meq/L 98-107 pdsq=383) CO2 (BEAKER) (test 24 meq/L 22-29 qxod=479) BLOOD UREA NITROGEN 14 mg/dL 7-21 (BEAKER) (test ffyq=084) CREATININE (BEAKER) (test 0.51 mg/dL 0.57-1.25 Specimen slightly spbb=120) hemolyzed GLUCOSE RANDOM (BEAKER) 99 mg/dL 70-105 (test qevp=195) CALCIUM (BEAKER) (test 8.2 mg/dL 8.4-10.2 wfps=665) EGFR (BEAKER) (test 126 mL/min/1.73 sq m ESTIMATED GFR IS NOT ecqo=8221) ACCURATE CREATININE CLEARANCE IN PREDICTING GLOMERULAR FILTRATION RATE. ESTIMATED GFR IS NOT APPLICABLE FOR DIALYSIS PATIENTS. TSH/FREE T4 IF [id number] 09:43:00 Test Item Value Reference Range Comments THYROID STIMULATING HORMONE (BEAKER) (test 1.86 uIU/mL 0.35-4.94 fpqy=794) CALCIUM, [id number] 09:27:00 Test Item Value Reference Range Comments CALCIUM IONIZED (BEAKER) (test pfio=863) 1.01 mmol/L 1.12-1.27 PH, BLOOD (BEAKER) (test bbhh=4539) 7.42 CBC W/PLT COUNT & AUTO [id number] 09:01:00 Test Item Value Reference Range Comments WHITE BLOOD CELL COUNT (BEAKER) (test wecf=518) 8.6 K/ L 3.5-10.5 RED BLOOD CELL COUNT (BEAKER) (test mmvw=975) 3.88 M/ L 3.93-5.22 HEMOGLOBIN (BEAKER) (test gfjg=283) 11.8 GM/DL 11.2-15.7 HEMATOCRIT (BEAKER) (test kutw=259) 35.4 % 34.1-44.9 MEAN CORPUSCULAR VOLUME (BEAKER) (test kdis=386) 91.2 fL 79.4-94.8 MEAN CORPUSCULAR HEMOGLOBIN (BEAKER) (test 30.4 pg 25.6-32.2 ohxo=727) MEAN CORPUSCULAR HEMOGLOBIN CONC (BEAKER) (test 33.3 GM/DL 32.2-35.5 tqrp=513) RED CELL DISTRIBUTION WIDTH (BEAKER) (test 12.8 % 11.7-14.4 olsl=578) PLATELET COUNT (BEAKER) (test yggk=741) 241 K/CU MM 150-450 MEAN PLATELET VOLUME (BEAKER) (test stmo=965) 10.2 fL 9.4-12.3 NUCLEATED RED BLOOD CELLS (BEAKER) (test 0 /100 WBC 0-0 gzqh=776) NEUTROPHILS RELATIVE PERCENT (BEAKER) (test 53 % yqnc=513) LYMPHOCYTES RELATIVE PERCENT (BEAKER) (test 33 % ptvs=566) MONOCYTES RELATIVE PERCENT (BEAKER) (test 9 % jhwc=339) EOSINOPHILS RELATIVE PERCENT (BEAKER) (test 3 % yvai=901) BASOPHILS RELATIVE PERCENT (BEAKER) (test 1 % wffy=432) NEUTROPHILS ABSOLUTE COUNT (BEAKER) (test 4.57 K/ L 1.56-6.13 majo=245) LYMPHOCYTES ABSOLUTE COUNT (BEAKER) (test 2.81 K/ L 1.18-3.74 duvi=646) MONOCYTES ABSOLUTE COUNT (BEAKER) (test 0.78 K/ L 0.24-0.36 yugt=227) EOSINOPHILS ABSOLUTE COUNT (BEAKER) (test 0.28 K/ L 0.04-0.36 nzgy=096) BASOPHILS ABSOLUTE COUNT (BEAKER) (test 0.10 K/ L 0.01-0.08 eapp=658) IMMATURE GRANULOCYTES-RELATIVE PERCENT (BEAKER) 0 % 0-1 (test sooq=4236) URINALYSIS W/ [id number] 04:17:00 Test Item Value Reference Range Comments COLOR (BEAKER) (test bemr=000) Yellow CLARITY (BEAKER) (test digs=649) Clear SPECIFIC GRAVITY UA (BEAKER) (test arwe=202) > 1.001-1.035 PH UA (BEAKER) (test umoo=532) 6.0 5.0-8.0 PROTEIN UA (BEAKER) (test tegb=966) 30 mg/dL Negative GLUCOSE UA (BEAKER) (test lgxz=284) Negative Negative KETONES UA (BEAKER) (test knja=860) 40 mg/dL Negative BILIRUBIN UA (BEAKER) (test vmnz=650) Negative Negative BLOOD UA (BEAKER) (test bphl=918) Trace Negative NITRITE UA (BEAKER) (test ppuo=781) Negative Negative LEUKOCYTE ESTERASE UA (BEAKER) (test bbus=472) Trace Negative UROBILINOGEN UA (BEAKER) (test uqrs=683) 2.0 mg/dL 0.2-1.0 RBC UA (BEAKER) (test fwdb=280) 23 /HPF WBC UA (BEAKER) (test onqo=176) 25 /HPF MUCUS (BEAKER) (test ukiq=7197) Many SQUAMOUS EPITHELIAL (BEAKER) (test mfkf=065) 14 /HPF SOURCE(BEAKER) (test cols=3829) Urine, Voided RAD, ABDOMEN/KUB, 1 VIEW [id number] 23:17:00Reason for exam:->EMESISReason for exam:->ABDOMINAL CRAMPINGReason for exam:->ng tubeFINAL REPORT ONE VIEW ABDOMEN HISTORY: Following, abdominal pain, nasogastrictube COMPARISON: CT abdomen of 06/01/2018 FINDINGS: 2 supine AP images of the abdomen and pelvis wereobtained. A nasogastric tube is present, with its tip in the region of the esophagogastric junction or proximal stomach and side-port just proximal to the expected level of the esophagogastric junction. There are multiple dilated small bowel loops in the left abdomen, which may reflect a partial smallbowel obstruction. There is gas in the large intestine. There are postoperative changes in the rightupper and left upper quadrants of the abdomen. There is contrast in the bladder. Signed: Rita Browning MDReport Verified Date/Time: 06/01/2018 23:17:36 Reading Location: [address] Consult Reading Room CT, [id number] 16:39:00Reason for exam:-> abdominal painIs the patient ?->UnknownWhat is the patient's sedation requirement?->No SedationFINAL REPORT DOSE REDUCTION: The examination was performed according to departmental dose- optimization program which includes automated exposure control, adjustment [...] levels in the colon. No findings of colonicobstruction. Scattered colonic diverticula without findings of diverticulitis. Appendix is not seen.No free extraluminal air. No bowel wall pneumatosis. [...] the stomach. Status post cholecystectomy. Signed: Chad Siegel MDReport Verified Date/Time: 06/01/2018 16 :39:15 Reading Location: [facility] Radiology Reading Room ALKALINE [id number] 13:03:00 Test Item Value Reference Range Comments ALKALINE PHOSPHATASE (BEAKER) (test retp=804) 99 U/L 40-150 [id number] 13:03:00 Test Item Value Reference Range Comments LIPASE (BEAKER) (test jpmj=690) 18 U/L 8-78 ALT (SGPT)2018-06-01 13:03:00 Test Item Value Reference Range Comments ALT (SGPT) (BEAKER) (test 21 U/L 6-55 Specimen slightly hemolyzed yasj=402) AST (SGOT)2018-06-01 13:03:00 Test Item Value Reference Range Comments AST (SGOT) (BEAKER) (test 17 U/L 5-34 Specimen slightly hemolyzed jkzi=980) BASIC METABOLIC [id number] 13:03:00 Test Item Value Reference Range Comments SODIUM (BEAKER) (test 138 meq/L 136-145 zspi=822) POTASSIUM (BEAKER) (test 3.3 meq/L 3.5-5.1 Specimen slightly crem=740) hemolyzed CHLORIDE (BEAKER) (test 104 meq/L 98-107 gcrn=854) CO2 (BEAKER) (test 24 meq/L 22-29 npgz=500) BLOOD UREA NITROGEN 20 mg/dL 7-21 (BEAKER) (test xsom=003) CREATININE (BEAKER) (test 0.75 mg/dL 0.57-1.25 Specimen slightly grap=274) hemolyzed GLUCOSE RANDOM (BEAKER) 107 mg/dL 70-105 (test jyun=479) CALCIUM (BEAKER) (test 8.8 mg/dL 8.4-10.2 gzau=370) EGFR (BEAKER) (test 81 mL/min/1.73 sq m ESTIMATED GFR IS NOT vzaf=5913) ACCURATE CREATININE CLEARANCE IN PREDICTING GLOMERULAR FILTRATION RATE. ESTIMATED GFR IS NOT APPLICABLE FOR DIALYSIS PATIENTS. CBC W/PLT COUNT & AUTO [id number] 12:41:00 Test Item Value Reference Range Comments WHITE BLOOD CELL COUNT (BEAKER) (test sptd=475) 9.5 K/ L 3.5-10.5 RED BLOOD CELL COUNT (BEAKER) (test uetf=458) 4.57 M/ L 3.93-5.22 HEMOGLOBIN (BEAKER) (test drnp=696) 13.8 GM/DL 11.2-15.7 HEMATOCRIT (BEAKER) (test doef=940) 40.9 % 34.1-44.9 MEAN CORPUSCULAR VOLUME (BEAKER) (test qdve=685) 89.5 fL 79.4-94.8 MEAN CORPUSCULAR HEMOGLOBIN (BEAKER) (test 30.2 pg 25.6-32.2 gbog=712) MEAN CORPUSCULAR HEMOGLOBIN CONC (BEAKER) (test 33.7 GM/DL 32.2-35.5 rgqm=826) RED CELL DISTRIBUTION WIDTH (BEAKER) (test 12.8 % 11.7-14.4 wgnn=545) PLATELET COUNT (BEAKER) (test gqmo=928) 274 K/CU MM 150-450 MEAN PLATELET VOLUME (BEAKER) (test jzvy=618) 9.6 fL 9.4-12.3 NUCLEATED RED BLOOD CELLS (BEAKER) (test 0 /100 WBC 0-0 pyui=577) NEUTROPHILS RELATIVE PERCENT (BEAKER) (test 56 % dnvc=994) LYMPHOCYTES RELATIVE PERCENT (BEAKER) (test 31 % bxfa=383) MONOCYTES RELATIVE PERCENT (BEAKER) (test 9 % hxfg=732) EOSINOPHILS RELATIVE PERCENT (BEAKER) (test 2 % evmv=462) BASOPHILS RELATIVE PERCENT (BEAKER) (test 1 % fvgb=438) NEUTROPHILS ABSOLUTE COUNT (BEAKER) (test 5.35 K/ L 1.56-6.13 snha=130) LYMPHOCYTES ABSOLUTE COUNT (BEAKER) (test 2.93 K/ L 1.18-3.74 kisp=199) MONOCYTES ABSOLUTE COUNT (BEAKER) (test 0.90 K/ L 0.24-0.36 kofz=786) EOSINOPHILS ABSOLUTE COUNT (BEAKER) (test 0.22 K/ L 0.04-0.36 dhec=085) BASOPHILS ABSOLUTE COUNT (BEAKER) (test 0.10 K/ L 0.01-0.08 awyn=112) IMMATURE GRANULOCYTES-RELATIVE PERCENT (BEAKER) 0 % 0-1 (test qaqd=3455) COMPREHENSIVE METABOLIC [id number] 05:52:00 Test Item Value Reference Range Comments TOTAL PROTEIN (BEAKER) 5.5 gm/dL 6.0-8.3 (test raom=443) ALBUMIN (BEAKER) (test 3.4 g/dL 3.5-5.0 szvq=6767) ALKALINE PHOSPHATASE 69 U/L 40-150 (BEAKER) (test lejp=547) BILIRUBIN TOTAL (BEAKER) 0.8 mg/dL 0.2-1.2 (test drga=763) SODIUM (BEAKER) (test 134 meq/L 136-145 xtst=895) POTASSIUM (BEAKER) (test 4.1 meq/L 3.5-5.1 cvpw=644) CHLORIDE (BEAKER) (test 107 meq/L 98-107 stbm=884) CO2 (BEAKER) (test 21 meq/L 22-29 sbqw=781) BLOOD UREA NITROGEN 12 mg/dL 7-21 (BEAKER) (test lrjb=254) CREATININE (BEAKER) (test 0.69 mg/dL 0.57-1.25 fekl=426) GLUCOSE RANDOM (BEAKER) 100 mg/dL 70-105 (test evlh=959) CALCIUM (BEAKER) (test 7.8 mg/dL 8.4-10.2 zmew=276) AST (SGOT) (BEAKER) (test 14 U/L 5-34 hpzm=237) ALT (SGPT) (BEAKER) (test 9 U/L 6-55 uzcn=604) EGFR (BEAKER) (test 89 mL/min/1.73 sq m ESTIMATED GFR IS NOT imib=7670) ACCURATE CREATININE CLEARANCE IN PREDICTING GLOMERULAR FILTRATION RATE. ESTIMATED GFR IS NOT APPLICABLE FOR DIALYSIS PATIENTS. CBC W/PLT COUNT & AUTO [id number] 05:37:00 Test Item Value Reference Range Comments WHITE BLOOD CELL COUNT (BEAKER) (test drjt=434) 11.6 K/ L 3.5-10.5 RED BLOOD CELL COUNT (BEAKER) (test dywr=769) 3.75 M/ L 3.93-5.22 HEMOGLOBIN (BEAKER) (test voyr=438) 11.5 GM/DL 11.2-15.7 HEMATOCRIT (BEAKER) (test qdqm=628) 33.9 % 34.1-44.9 MEAN CORPUSCULAR VOLUME (BEAKER) (test iumz=196) 90.4 fL 79.4-94.8 MEAN CORPUSCULAR HEMOGLOBIN (BEAKER) (test 30.7 pg 25.6-32.2 vgxv=907) MEAN CORPUSCULAR HEMOGLOBIN CONC (BEAKER) (test 33.9 GM/DL 32.2-35.5 qney=515) RED CELL DISTRIBUTION WIDTH (BEAKER) (test 12.2 % 11.7-14.4 hkfw=070) PLATELET COUNT (BEAKER) (test qysa=978) 202 K/CU MM 150-450 MEAN PLATELET VOLUME (BEAKER) (test ooep=582) 9.9 fL 9.4-12.3 NUCLEATED RED BLOOD CELLS (BEAKER) (test 0 /100 WBC 0-0 hvtt=308) NEUTROPHILS RELATIVE PERCENT (BEAKER) (test 72 % kdxh=808) LYMPHOCYTES RELATIVE PERCENT (BEAKER) (test 21 % gstx=314) MONOCYTES RELATIVE PERCENT (BEAKER) (test 6 % fnyy=420) EOSINOPHILS RELATIVE PERCENT (BEAKER) (test 0 % xfho=503) BASOPHILS RELATIVE PERCENT (BEAKER) (test 0 % ugqs=151) NEUTROPHILS ABSOLUTE COUNT (BEAKER) (test 8.40 K/ L 1.56-6.13 jthj=699) LYMPHOCYTES ABSOLUTE COUNT (BEAKER) (test 2.41 K/ L 1.18-3.74 lkmt=306) MONOCYTES ABSOLUTE COUNT (BEAKER) (test 0.72 K/ L 0.24-0.36 mhez=340) EOSINOPHILS ABSOLUTE COUNT (BEAKER) (test 0.00 K/ L 0.04-0.36 paam=692) BASOPHILS ABSOLUTE COUNT (BEAKER) (test 0.02 K/ L 0.01-0.08 yrmc=933) IMMATURE GRANULOCYTES-RELATIVE PERCENT (BEAKER) 0 % 0-1 (test ymjk=9630) BASIC METABOLIC [id number] 18:54:00 Test Item Value Reference Range Comments SODIUM (BEAKER) (test 139 meq/L 136-145 yviw=067) POTASSIUM (BEAKER) (test 4.2 meq/L 3.5-5.1 hldw=113) CHLORIDE (BEAKER) (test 111 meq/L 98-107 gdny=784) CO2 (BEAKER) (test 21 meq/L 22-29 aaro=346) BLOOD UREA NITROGEN 11 mg/dL 7-21 (BEAKER) (test seml=618) CREATININE (BEAKER) (test 0.76 mg/dL 0.57-1.25 mzoc=979) GLUCOSE RANDOM (BEAKER) 127 mg/dL 70-105 (test crdv=709) CALCIUM (BEAKER) (test 8.3 mg/dL 8.4-10.2 zkhu=677) EGFR (BEAKER) (test 80 mL/min/1.73 sq m ESTIMATED GFR IS NOT tusy=8518) ACCURATE CREATININE CLEARANCE IN PREDICTING GLOMERULAR FILTRATION RATE. ESTIMATED GFR IS NOT APPLICABLE FOR DIALYSIS PATIENTS. POCT-HEMOGLOBIN [id number] 11:10:00 Test Item Value Reference Range Comments POC-HEMOGLOBIN METER 14.4 g/dL 12.0-15.0 TESTED AT [facility] [address] (BEAKER) (test wape=6715) [facility] [address] BLOOD [id number] 00:00:00 Test Item Value Reference Range Comments CULTURE (BEAKER) (test ejoa=3663) No growth in 5 days BLOOD [id number] 00:00:00 Test Item Value Reference Range Comments CULTURE (BEAKER) (test tcky=3998) No growth in 5 days TISSUE [id number] 17:32:00Surgical Pathology Report Case: [id number] Authorizing Provider: Renato Lemus, Collected: 11/23/2017 0856 OrderingLocation: [facility] Received: 2017 0810 SERVICES Pathologist: Vanessa Rayo MD Specimen: Gallbladder GALLBLADDER, CHOLECYSTECTOMY : - MILD SUBACUTE AND CHRONIC CHOLECYSTITIS Signing Pathologist Direct Phone Line: [phone] signed by Vanessa Rayo MD on 11/26 at 5:32 [id number] Gallbladder The specimen is received in formalin-filled container and labeled with the patient's information and labeled "gallbladder" consists of an intact gallbladder measuring 6.5 x 4 cm with a gallbladder wall thickness up to 0.3 cm. Gallbladder lumen is filled with green thin fluid with no stonespresent. The mucosa is cooper-red and velvety with no masses. Section code: A1, margin en face; A2, gallbladder wall. CG/pl Performed.MR, ABDOMEN, [id number] 17:24:00FINAL REPORT Technique: Multisequence and multiplanar MRI of [...] There is fatty infiltration of the pancreas, particularlyin the region of the uncinate process. There [...] stranding in the gallbladder fossa. Signed: Chad Siegel MDReport Verified Date/Time: 11/25/2017 17:24:49 Reading Location: [facility] Radiology Reading Room Electronically signedby: CHAD SIEGEL M.D. on 11/25/2017 05:24 PMHEPATIC FUNCTION [id number] 05:34: 00 Test Item Value Reference Range Comments TOTAL PROTEIN (BEAKER) (test qtyc=009) 5.7 gm/dL 6.0-8.3 ALBUMIN (BEAKER) (test ynnl=1941) 3.4 g/dL 3.5-5.0 BILIRUBIN TOTAL (BEAKER) (test npcf=160) 0.4 mg/dL 0.2-1.2 BILIRUBIN DIRECT (BEAKER) (test krlu=665) 0.2 mg/dL 0.1-0.5 ALKALINE PHOSPHATASE (BEAKER) (test mfit=515) 78 U/L 40-150 AST (SGOT) (BEAKER) (test mgfb=187) 23 U/L 5-34 ALT (SGPT) (BEAKER) (test olev=291) 32 U/L 6-55 BASIC METABOLIC [id number] 05:34:00 Test Item Value Reference Range Comments SODIUM (BEAKER) (test 141 meq/L 136-145 wvkv=494) POTASSIUM (BEAKER) (test 3.8 meq/L 3.5-5.1 ytmj=569) CHLORIDE (BEAKER) (test 110 meq/L 98-107 rdfo=515) CO2 (BEAKER) (test 25 meq/L 22-29 sbxp=157) BLOOD UREA NITROGEN 8 mg/dL 7-21 (BEAKER) (test btrr=524) CREATININE (BEAKER) (test 0.66 mg/dL 0.57-1.25 fghr=764) GLUCOSE RANDOM (BEAKER) 84 mg/dL 70-105 (test xvou=998) CALCIUM (BEAKER) (test 8.4 mg/dL 8.4-10.2 iwli=465) EGFR (BEAKER) (test 94 mL/min/1.73 sq m ESTIMATED GFR IS NOT uwtl=2722) ACCURATE CREATININE CLEARANCE IN PREDICTING GLOMERULAR FILTRATION RATE. ESTIMATED GFR IS NOT APPLICABLE FOR DIALYSIS PATIENTS. CBC (HEMOGRAM ONLY)2017-11-25 05:07:00 Test Item Value Reference Range Comments WHITE BLOOD CELL COUNT (BEAKER) (test tpmw=039) 7.3 K/ L 3.5-10.5 RED BLOOD CELL COUNT (BEAKER) (test lndz=660) 3.66 M/ L 3.93-5.22 HEMOGLOBIN (BEAKER) (test gpwo=532) 11.0 GM/DL 11.2-15.7 HEMATOCRIT (BEAKER) (test rhcr=508) 33.0 % 34.1-44.9 MEAN CORPUSCULAR VOLUME (BEAKER) (test hnbi=212) 90.2 fL 79.4-94.8 MEAN CORPUSCULAR HEMOGLOBIN (BEAKER) (test 30.1 pg 25.6-32.2 vxrs=916) MEAN CORPUSCULAR HEMOGLOBIN CONC (BEAKER) (test 33.3 GM/DL 32.2-35.5 okkj=570) RED CELL DISTRIBUTION WIDTH (BEAKER) (test 11.9 % 11.7-14.4 joii=888) PLATELET COUNT (BEAKER) (test gfyh=125) 179 K/CU MM 150-450 MEAN PLATELET VOLUME (BEAKER) (test bqqn=002) 9.8 fL 9.4-12.3 NUCLEATED RED BLOOD CELLS (BEAKER) (test 0 /100 WBC 0-0 cacp=200) HEPATIC FUNCTION [id number] 05:26:00 Test Item Value Reference Range Comments TOTAL PROTEIN (BEAKER) (test uahx=403) 5.8 gm/dL 6.0-8.3 ALBUMIN (BEAKER) (test oaqa=6823) 3.6 g/dL 3.5-5.0 BILIRUBIN TOTAL (BEAKER) (test hdse=265) 0.7 mg/dL 0.2-1.2 BILIRUBIN DIRECT (BEAKER) (test pxle=335) 0.3 mg/dL 0.1-0.5 ALKALINE PHOSPHATASE (BEAKER) (test emzd=722) 85 U/L 40-150 AST (SGOT) (BEAKER) (test syad=445) 26 U/L 5-34 ALT (SGPT) (BEAKER) (test yhbs=527) 33 U/L 6-55 BASIC METABOLIC [id number] 05:26:00 Test Item Value Reference Range Comments SODIUM (BEAKER) (test 136 meq/L 136-145 anad=047) POTASSIUM (BEAKER) (test 3.8 meq/L 3.5-5.1 yfyb=804) CHLORIDE (BEAKER) (test 106 meq/L 98-107 mmkp=936) CO2 (BEAKER) (test 26 meq/L 22-29 sqds=407) BLOOD UREA NITROGEN 10 mg/dL 7-21 (BEAKER) (test nnjj=214) CREATININE (BEAKER) (test 0.70 mg/dL 0.57-1.25 fmfj=175) GLUCOSE RANDOM (BEAKER) 81 mg/dL 70-105 (test gspl=273) CALCIUM (BEAKER) (test 8.6 mg/dL 8.4-10.2 gtgb=931) EGFR (BEAKER) (test 88 mL/min/1.73 sq m ESTIMATED GFR IS NOT xzvf=7157) ACCURATE CREATININE CLEARANCE IN PREDICTING GLOMERULAR FILTRATION RATE. ESTIMATED GFR IS NOT APPLICABLE FOR DIALYSIS PATIENTS. CBC (HEMOGRAM ONLY)2017-11-24 05:03:00 Test Item Value Reference Range Comments WHITE BLOOD CELL COUNT (BEAKER) (test plxq=277) 9.2 K/ L 3.5-10.5 RED BLOOD CELL COUNT (BEAKER) (test corl=265) 3.68 M/ L 3.93-5.22 HEMOGLOBIN (BEAKER) (test saua=845) 11.0 GM/DL 11.2-15.7 HEMATOCRIT (BEAKER) (test idts=440) 32.8 % 34.1-44.9 MEAN CORPUSCULAR VOLUME (BEAKER) (test wyeo=072) 89.1 fL 79.4-94.8 MEAN CORPUSCULAR HEMOGLOBIN (BEAKER) (test 29.9 pg 25.6-32.2 snak=639) MEAN CORPUSCULAR HEMOGLOBIN CONC (BEAKER) (test 33.5 GM/DL 32.2-35.5 fepk=974) RED CELL DISTRIBUTION WIDTH (BEAKER) (test 11.6 % 11.7-14.4 ysbt=689) PLATELET COUNT (BEAKER) (test bshg=220) 186 K/CU MM 150-450 MEAN PLATELET VOLUME (BEAKER) (test qqso=521) 9.7 fL 9.4-12.3 NUCLEATED RED BLOOD CELLS (BEAKER) (test 0 /100 WBC 0-0 grgz=411) [place], 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 History: Intraoperative. Findings: Radiologist was not present for the exam. Fluoroscopy was not performed by the undersigned. Five images from intraoperative fluoroscopy demonstrate intraoperative cholangiogram. Fluoroscopy time is 36 seconds. IMPRESSION:Intraoperative exam as described above. Signed: Prema Tate MDReport Verified Date/Time:11/23/2017 09:28:32 Reading Location: [address] Body Reading Room U/S, ABDOMINAL, [id number]- 09-08 16:44:00Abdomen limited area? Add comment if clarification is needed.-> Right upper quadrantReason for exam:->RUQ pain, scheduled for MRCPReason for exam:->ABDOMINAL PAINFINAL REPORT Ultrasound of the Right Upper Quadrant of the Abdomen, 11/22/2017Clinical History: Right upper quadrant pain. Discussion: Sonographic [...] the interpolar aspect. No shadowing calculus. No hydronephrosis.IVC/Aorta: Segments partially seen. Unremarkable. Impression:Distended gallbladder with mild wall thickening and pericholecystic fluid. Absent sonographic Araujo sign. Findings are concerning for cholecystitis. Nuclear medicine cholescintigraphy may be useful. Reportedly , MRCP is pending at time of dictation. Signed: Prema Tate MDReport Verified Date/Time: 11/22/2017 16:44:00 Reading Location: [address] Body Reading Room Electronically signed by: PREMA TATE M.D. on 2017 04:44 PMURINALYSIS [id number] 14:54:00 Test Item Value Reference Range Comments RBC UA (BEAKER) (test dnfy=704) 1 /HPF WBC UA (BEAKER) (test jlwv=110) 25 /HPF MUCUS (BEAKER) (test jowp=4290) Moderate SQUAMOUS EPITHELIAL (BEAKER) (test mueb=311) 3 /HPF CRYSTALS, URINE (BEAKER) (test xqom=5269) Rare URINALYSIS WITH MICROSCOPIC IF [id number] 14:53:00 Test Item Value Reference Range Comments COLOR (BEAKER) (test ffmv=102) Yellow CLARITY (BEAKER) (test wblg=279) Clear SPECIFIC GRAVITY UA (BEAKER) (test viet=045) 1.017 1.001-1.035 PH UA (BEAKER) (test ejms=093) 5.5 5.0-8.0 PROTEIN UA (BEAKER) (test gfms=813) Negative Negative GLUCOSE UA (BEAKER) (test mpir=362) Negative Negative KETONES UA (BEAKER) (test jire=854) Negative Negative BILIRUBIN UA (BEAKER) (test ezgs=291) Negative Negative BLOOD UA (BEAKER) (test mzkq=438) Negative Negative NITRITE UA (BEAKER) (test fjlk=956) Negative Negative LEUKOCYTE ESTERASE UA (BEAKER) (test rnvz=713) Large Negative UROBILINOGEN UA (BEAKER) (test fahp=367) 0.2 mg/dL 0.2-1.0 SOURCE(BEAKER) (test prtx=9610) RAD, CHEST, 1 VIEW, NON [id number] 13:49:00Reason for exam:->chest painIs the patient ?->UnknownShould this be performed at the bedside? ->YesFINAL REPORT INDICATION: chest pain TECHNIQUE: Chest radiograph, single view,portable technique. FINDINGS / IMPRESSION: There is no evidence of pneumonia or pulmonary edema. Cardiac and mediastinal contours are unremarkable. No pleural effusion or pneumothorax is demonstrated. Osseous structures are unremarkable. Signed: Gigi Crews MDReport Verified Date/Time: 11/22/2017 13:49:34 Reading Location: [facility] [id number] Ortho Consult Reading Room Electronically signed by: GIGI CREWS M.D. on 2017 01:49 PMTROPONIN [id number] 13:48:00 Test Item Value Reference Range Comments TROPONIN I (BEAKER) (test ebvf=764) < ng/mL 0.00-0.03 Troponin I (TnI) levels must be interpreted in the context of the presenting symptoms and the clinical findings. Elevated TnI levels indicate myocardial damage, but are not specific for ischemic heart disease. Elevated TnI levels are seen in patients with other cardiac conditions (including myocarditis and congestive heart failure), and slight TnI elevations occur in patients with other conditions, including sepsis, renal failure, acidosis, acute neurological disease, and persistent tachyarrhythmia.B-TYPE NATRIURETIC FACTOR (BNP) 13:47:00 Test Item Value Reference Range Comments B-TYPE NATRIURETIC PEPTIDE (BEAKER) (test gyhr=193) 26 pg/mL 0-100 [id number] 13:42:00 Test Item Value Reference Range Comments MAGNESIUM (BEAKER) (test 1.9 mg/dL 1.6-2.6 Specimen slightly hemolyzed icbf=502) COMPREHENSIVE METABOLIC [id number] 13:42:00 Test Item Value Reference Range Comments TOTAL PROTEIN (BEAKER) 7.0 gm/dL 6.0-8.3 Specimen slightly (test uwmh=556) hemolyzed ALBUMIN (BEAKER) (test 4.3 g/dL 3.5-5.0 Specimen slightly uvyq=5707) hemolyzed ALKALINE PHOSPHATASE 122 U/L 40-150 (BEAKER) (test vkrx=766) BILIRUBIN TOTAL (BEAKER) 0.9 mg/dL 0.2-1.2 Specimen slightly (test xbew=339) hemolyzed SODIUM (BEAKER) (test 134 meq/L 136-145 bugg=110) POTASSIUM (BEAKER) (test 3.2 meq/L 3.5-5.1 Specimen slightly vuxx=998) hemolyzed CHLORIDE (BEAKER) (test 101 meq/L 98-107 lery=537) CO2 (BEAKER) (test 22 meq/L 22-29 opdy=065) BLOOD UREA NITROGEN 16 mg/dL 7-21 (BEAKER) (test wvuw=154) CREATININE (BEAKER) (test 0.87 mg/dL 0.57-1.25 Specimen slightly htkk=080) hemolyzed GLUCOSE RANDOM (BEAKER) 113 mg/dL 70-105 (test rjgj=307) CALCIUM (BEAKER) (test 8.7 mg/dL 8.4-10.2 jmgk=447) AST (SGOT) (BEAKER) (test 45 U/L 5-34 Specimen slightly zqqr=214) hemolyzed ALT (SGPT) (BEAKER) (test 47 U/L 6-55 Specimen slightly nuwv=476) hemolyzed EGFR (BEAKER) (test 68 mL/min/1.73 sq m ESTIMATED GFR IS NOT ddbr=2768) ACCURATE CREATININE CLEARANCE IN PREDICTING GLOMERULAR FILTRATION RATE. ESTIMATED GFR IS NOT APPLICABLE FOR DIALYSIS PATIENTS. HEPATIC FUNCTION [id number] 13:42:00 Test Item Value Reference Range Comments TOTAL PROTEIN (BEAKER) (test 7.0 gm/dL 6.0-8.3 Specimen slightly hemolyzed itnu=697) ALBUMIN (BEAKER) (test 4.3 g/dL 3.5-5.0 Specimen slightly hemolyzed jwue=0736) BILIRUBIN TOTAL (BEAKER) (test 0.9 mg/dL 0.2-1.2 Specimen slightly hemolyzed zytx=194) BILIRUBIN DIRECT (BEAKER) (test 0.3 mg/dL 0.1-0.5 Specimen slightly hemolyzed yopz=229) ALKALINE PHOSPHATASE (BEAKER) 122 U/L 40-150 (test ouvh=829) AST (SGOT) (BEAKER) (test 45 U/L 5-34 Specimen slightly hemolyzed msbn=557) ALT (SGPT) (BEAKER) (test 47 U/L 6-55 Specimen slightly hemolyzed tuez=930) [id number] 13:42:00 Test Item Value Reference Range Comments AMYLASE (BEAKER) (test rrac=775) 54 U/L 25-125 Specimen slightly hemolyzed [id number] 13:42:00 Test Item Value Reference Range Comments LIPASE (BEAKER) (test ltov=523) 17 U/L 8-78 CBC W/PLT COUNT & AUTO [id number] 12:57:00 Test Item Value Reference Range Comments WHITE BLOOD CELL COUNT (BEAKER) (test ftpf=869) 8.6 K/ L 3.5-10.5 RED BLOOD CELL COUNT (BEAKER) (test tgcd=563) 4.41 M/ L 3.93-5.22 HEMOGLOBIN (BEAKER) (test ftsx=320) 13.2 GM/DL 11.2-15.7 HEMATOCRIT (BEAKER) (test ypyf=631) 39.3 % 34.1-44.9 MEAN CORPUSCULAR VOLUME (BEAKER) (test lzzz=983) 89.1 fL 79.4-94.8 MEAN CORPUSCULAR HEMOGLOBIN (BEAKER) (test 29.9 pg 25.6-32.2 ayxz=157) MEAN CORPUSCULAR HEMOGLOBIN CONC (BEAKER) (test 33.6 GM/DL 32.2-35.5 awdn=121) RED CELL DISTRIBUTION WIDTH (BEAKER) (test 11.9 % 11.7-14.4 iimq=586) PLATELET COUNT (BEAKER) (test mayi=920) 212 K/CU MM 150-450 MEAN PLATELET VOLUME (BEAKER) (test qrxv=961) 10.0 fL 9.4-12.3 NUCLEATED RED BLOOD CELLS (BEAKER) (test 0 /100 WBC 0-0 eqyv=102) NEUTROPHILS RELATIVE PERCENT (BEAKER) (test 70 % kvtx=190) LYMPHOCYTES RELATIVE PERCENT (BEAKER) (test 23 % icgu=675) MONOCYTES RELATIVE PERCENT (BEAKER) (test 6 % ttcs=924) EOSINOPHILS RELATIVE PERCENT (BEAKER) (test 1 % amnt=862) BASOPHILS RELATIVE PERCENT (BEAKER) (test 1 % wyvd=555) NEUTROPHILS ABSOLUTE COUNT (BEAKER) (test 6.00 K/ L 1.56-6.13 egbk=788) LYMPHOCYTES ABSOLUTE COUNT (BEAKER) (test 1.94 K/ L 1.18-3.74 teve=308) MONOCYTES ABSOLUTE COUNT (BEAKER) (test 0.49 K/ L 0.24-0.36 ykfb=681) EOSINOPHILS ABSOLUTE COUNT (BEAKER) (test 0.08 K/ L 0.04-0.36 uljc=353) BASOPHILS ABSOLUTE COUNT (BEAKER) (test 0.05 K/ L 0.01-0.08 vuqk=868) IMMATURE GRANULOCYTES-RELATIVE PERCENT (BEAKER) 1 % 0-1 (test bqob=1748) CT, [id number] 15:22:00Reason for exam:->epigastric abd painIs the patient ?->NoWhat is the patient's sedation requirement?->No SedationFINAL REPORT HISTORY : epigastric abd painepigastric abd pain Technique: Multiple axial images of the abdomen and pelvis were performed with the administration of IV contrastfrom the lung bases to the pubic symphysis. Delayed images were also obtained. This exam was performed according to our departmental dose optimization program which includes automated exposure control,adjustment of the mA and/or kV according to patient size and/or use of iterative reconstructive technique. COMPARISON : None COMMENT : The lung bases are clear. The visualized liver, spleen, adrenal glands and duodenum are within normal limits. There is some likely focal fatty replacement involving the pancreatic head with some areas of likely sparing in the uncinate process. Underlying mass/lesion cannot be partly excluded in the appropriate clinical context. The findings can be correlated with an MRI, pancreas mass protocol. The gallbladder is slightly distended. The findings can be correlated with a dedicated right upper quadrant abdominal ultrasound. There is atherosclerotic vascular disease. There is infrarenal abdominal aortic ectasia measuring up to 2.4 x 2.3 cm. There is a too small to characterize left renal hypodensity but which may represent a cyst. Postsurgical changes are seen around the stomach. There is no abdominal, retroperitoneal or pelvic lymphadenopathy. Multilevel degenerative disc changes of the visualized thoracolumbar spine are seen. There is no free fluid or free air in the abdomen or pelvis. No findings of any bowel obstruction. The small bowel is within normal limits. There is colonic diverticulosis. There are no CT findings to suggest diverticulitis, however. The appendix is not visualized. However, there are no secondary CT findings to suggest appendicitis. Thepatient is status post hysterectomy. No adnexal masses/lesions are appreciated. Impression: 1. Colonic diverticulosis without CT findings of diverticulitis. 2. Post surgical changes around the stomach.3. Slightly distended gallbladder. Findings can be correlated with a right upper quadrant abdominal ultrasound. 4. Infrarenal abdominal aortic ectasia measuring up to 2.4 x 2.3 cm. Please see above for details. Signed: Elissa Wilcox Verified Date/Time: 11/20/2017 15:22:49 Reading Location: [facility] Diagnostic Imaging Reading Room - [place] [id number] Electronically signed by: ELISSA WILCOX M.D.on 11/20/2017 03:22 PMCT, BRAIN, WITHOUT [id number] 15:16:00Reason for exam:->dizziness, lightheaded, near syncopeIs the patient ?->NoWhat is the patient's sedation requirement?->No SedationFINAL REPORT CT head without contrast 11/20/2017 3:15 PM CLINICAL HISTORY: dizziness, lightheaded, near syncope TECHNIQUE: Axial noncontrast CT images through the head were obtained. This examination was performed according to our departmental dose optimization program, which includes automated exposure control, adjustment of the mA and/or kV according to patient size, and/or useof iterated reconstruction technique. COMPARISON: None available FINDINGS: There is no hemorrhage, extra-axial collection, mass, hydrocephalus, or midline shift. There is no CT evidence for cerebral infarction. The visualized paranasal sinuses and mastoid air cells are well aerated. The skull is intact. IMPRESSION: No intracranial hemorrhage or mass effect. If concern for acute pathology persists, further evaluation with MRI is recommended. Signed: Renato Dupree Verified Date/Time: 11/20/2017 15:16:39 Reading Location: [facility] Radiology Reading Room TROPONIN [id number] 14:26:00 Test Item Value Reference Range Comments TROPONIN I (BEAKER) (test abzp=355) < ng/mL 0.00-0.15 Troponin I (TnI) levels must be interpreted in the context of the presenting symptoms and the clinical findings. Elevated TnI levels indicate myocardial damage, but are not specific for ischemic heart disease. Elevated TnI levels are seen in patients with other cardiac conditions (including myocarditis and congestive heart failure), and slight TnI elevations occur in patients with other conditions, including sepsis, renal failure, acidosis, acute neurological disease, and persistent tachyarrhythmia.COMPREHENSIVE METABOLIC [id number] 14:21:00 Test Item Value Reference Range Comments TOTAL PROTEIN (BEAKER) 6.7 gm/dL 6.0-8.5 (test phyv=778) ALBUMIN (BEAKER) (test 4.3 g/dL 3.5-5.0 zqrw=3481) ALKALINE PHOSPHATASE 79 U/L 30-115 (BEAKER) (test iixg=215) BILIRUBIN TOTAL (BEAKER) 0.5 mg/dL 0.1-1.2 (test nwgc=366) SODIUM (BEAKER) (test 140 meq/L 135-148 iiql=285) POTASSIUM (BEAKER) (test 3.5 meq/L 3.6-5.5 tpyi=732) CHLORIDE (BEAKER) (test 106 meq/L 98-106 wakh=946) CO2 (BEAKER) (test 23 meq/L 20-29 elha=534) BLOOD UREA NITROGEN 13 mg/dL 10-26 (BEAKER) (test fqpi=976) CREATININE (BEAKER) (test 0.72 mg/dL 0.50-1.20 yqvg=732) GLUCOSE RANDOM (BEAKER) 88 mg/dL 70-110 (test dluv=777) CALCIUM (BEAKER) (test 8.8 mg/dL 8.5-10.5 hzyt=508) AST (SGOT) (BEAKER) (test 12 U/L 5-40 frms=223) ALT (SGPT) (BEAKER) (test 14 U/L 5-50 isgp=702) EGFR (BEAKER) (test 85 mL/min/1.73 sq m ESTIMATED GFR IS NOT uvmz=0815) ACCURATE CREATININE CLEARANCE IN PREDICTING GLOMERULAR FILTRATION RATE. ESTIMATED GFR IS NOT APPLICABLE FOR DIALYSIS PATIENTS. [id number] 14:20:00 Test Item Value Reference Range Comments LIPASE (BEAKER) (test pogi=377) 31 U/L 6-51 RAD, CHEST, 1 VIEW, NON [id number] 14:19:00Reason for exam:->epigastric painIs the patient ?->NoShould this be performed at the bedside?-> YesFINAL REPORT INDICATION: epigastric pain TECHNIQUE: Chest radiograph, single view, portable technique. FINDINGS / IMPRESSION: No evidence of free air under the diaphragm. Lungs are clear and cardiac and mediastinal contours are normal. No pneumothorax or pleural effusion demonstrated. Osseous structures unremarkable. In summary, unremarkable chest radiograph. Signed: Gigi Crews MDReport Verified Date/Time: 11/20/2017 14 :19:44 Reading Location: [facility] Reading Room URINALYSIS W/ [id number] 14:12:00 Test Item Value Reference Range Comments COLOR (BEAKER) (test tbgr=403) Yellow CLARITY (BEAKER) (test ucsb=905) Clear SPECIFIC GRAVITY UA (BEAKER) (test icca=396) >= 1.001-1.035 PH UA (BEAKER) (test avwr=053) 6.0 5.0-8.0 PROTEIN UA (BEAKER) (test fswo=156) Negative Negative GLUCOSE UA (BEAKER) (test efil=406) Negative Negative KETONES UA (BEAKER) (test ajld=533) Negative Negative BILIRUBIN UA (BEAKER) (test yejf=029) Negative Negative BLOOD UA (BEAKER) (test hyuw=686) Trace Negative NITRITE UA (BEAKER) (test zoaw=306) Negative Negative LEUKOCYTE ESTERASE UA (BEAKER) (test atas=614) Small Negative UROBILINOGEN UA (BEAKER) (test rgvd=483) 0.2 mg/dL 0.2-1.0 BACTERIA (BEAKER) (test tnbz=957) Few MUCUS (BEAKER) (test zilr=3334) Few RBC UA-MANUAL (BEAKER) (test hhgo=8564) <5 /HPF WBC UA-MANUAL (BEAKER) (test wlzd=8836) 10-20 /HPF SQUAMOUS EPITHELIAL MANUAL (BEAKER) (test 10-20 /HPF pmsr=3806) SOURCE(BEAKER) (test epoh=8169) CBC W/PLT COUNT & AUTO [id number] 14:12:00 Test Item Value Reference Range Comments WHITE BLOOD CELL COUNT (BEAKER) (test olin=046) 8.8 K/ L 4.0-10.0 RED BLOOD CELL COUNT (BEAKER) (test okjr=852) 4.43 M/ L 4.00-5.00 HEMOGLOBIN (BEAKER) (test lpxd=849) 13.3 GM/DL 12.0-15.5 HEMATOCRIT (BEAKER) (test wedl=015) 40.5 % 36.0-46.0 MEAN CORPUSCULAR VOLUME (BEAKER) (test gthi=655) 91.4 fL 82.0-99.0 MEAN CORPUSCULAR HEMOGLOBIN (BEAKER) (test 30.0 pg 27.0-33.0 dxps=573) MEAN CORPUSCULAR HEMOGLOBIN CONC (BEAKER) (test 32.8 GM/DL 32.0-36.0 rjuh=931) RED CELL DISTRIBUTION WIDTH (BEAKER) (test 11.9 % 12.0-15.0 twbx=980) PLATELET COUNT (BEAKER) (test eesa=911) 238 K/CU MM 150-430 MEAN PLATELET VOLUME (BEAKER) (test elyo=375) 9.5 fL 6.0-11.5 NUCLEATED RED BLOOD CELLS (BEAKER) (test 0 /100 WBC 0-0 acte=788) NEUTROPHILS RELATIVE PERCENT (BEAKER) (test 45 % djjk=295) LYMPHOCYTES RELATIVE PERCENT (BEAKER) (test 46 % snku=170) MONOCYTES RELATIVE PERCENT (BEAKER) (test 8 % mrbl=102) EOSINOPHILS RELATIVE PERCENT (BEAKER) (test 1 % sapx=537) BASOPHILS RELATIVE PERCENT (BEAKER) (test 1 % ycen=692) NEUTROPHILS ABSOLUTE COUNT (BEAKER) (test 3.94 K/ L 1.80-8.00 pjul=112) LYMPHOCYTES ABSOLUTE COUNT (BEAKER) (test 4.07 K/ L 1.48-4.50 uqro=054) MONOCYTES ABSOLUTE COUNT (BEAKER) (test 0.67 K/ L 0.00-1.30 mbio=222) EOSINOPHILS ABSOLUTE COUNT (BEAKER) (test 0.08 K/ L 0.00-0.50 rczz=274) BASOPHILS ABSOLUTE COUNT (BEAKER) (test 0.06 K/ L 0.00-0.20 toir=661) IMMATURE GRANULOCYTES-RELATIVE PERCENT (BEAKER) 0 % 0-0 (test nspn=3457)
[2018-06-06] MEDS ORDERED: NA CHLORIDE 0.9% 1,000 ML ONE (17:58)
[2018-06-06 18:10] LABS: Absolute Lymphocytes (CBC) 2.8 K/uL (0.7-4.9); Absolute Monocytes 0.7 K/uL (0.1-1.3); Absolute Neutrophil 6.2 K/uL (1.8-8.0); Basophils % 0.8 % (0-1.3); Eosinophils % 2.7 % (0-4.4); Hematocrit 39.5 % (36.0-45.0); Lymphocytes % 27.6 % (15.3-44.8); MPV 8.3 fL (7.6-11.3); Monocytes % 7.1 % (3.3-12.3); RBC Red Blood Cell Count 4.45 M/uL (3.86-4.86)
[2018-06-06 18:25] LABS: ALT/SGPT 20 U/L (12-78); AST/SGOT 12 U/L (15-37); Albumin 3.4 g/dL (3.4-5.0); Alkaline Phosphatase 109 U/L (45-117); BUN Blood Urea Nitrogen 11 mg/dL (7-18); Bicarbonate 22 mmol/L (21-32); Bilirubin Direct 0.2 mg/dL (0-0.2); Bilirubin Total 0.5 mg/dL (0.2-1.0); Glucose Level 107 mg/dL (74-106); Lipase 86 U/L (73-393); Potassium 3.5 mmol/L (3.5-5.1); Protein, Total 6.8 g/dL (6.4-8.2); Sodium Level 142 mmol/L (136-145)
--- NOTE | 2018-06-06 18:39 | RAD REPORT ---
EXAM DESCRIPTION: CT - Stone Protocol - 06/06/2018 6:12 pm CLINICAL HISTORY: Abdominal pain. Nausea COMPARISON: None. TECHNIQUE: Computed axial tomography of the abdomen pelvis was obtained without oral or IV contrast. Lack of IV and oral contrast limits evaluation of solid organs, bowel, and vessels. Coronal reformat maya images were obtained and reviewed. All CT scans are performed using dose optimization technique as appropriate and may include automated exposure control or mA/KV adjustment according to patient size. FINDINGS: A renal calculus is not seen. An ureteral calculus is not noted. A bladder calculus is not present. The liver, spleen, pancreas and adrenals appear grossly normal There is no evidence of diverticulitis. The jejunum and most of the ileum is fluid-filled and mildly to moderately dilated. The distal ileum is normal caliber. Minimal amount of free fluid. No free air Fluid is present within the vagina. Hysterectomy has been performed. The gallbladder is been removed IMPRESSION: Distal small bowel obstruction
[2018-06-06] MEDS ORDERED: ONDANSETRON 4 MG/2 ML VIAL ONE ×2 (18:41→20:19)
[2018-06-06] MEDS ORDERED: FENTANYL CITR 100 MCG/2 ML ONE ×2 (18:41→19:47)
--- NOTE | 2018-06-06 19:00 | ER ---
Nurse's Notes [facility] Name: Aruna Conde Age: 53 yrs Sex: Female : 1965 Arrival Date: 06/06/2018 Time: 17:22 Bed 17 Private MD: Soham Mitchell Diagnosis: Other and unspecified intestinal obstruction Presentation: 06/06 17:23 Presenting complaint: Patient states: I had a sx to remove some lesions in my abd on may 19. I stayed in the hospital ([facility]) for three days and then was discharged on Friday the I went to their ER and was dx with an bowel obstruction and was released yesterday. Last night the pain came back and is much worse today. Pt reports nausea. Transition of care: patient was not received from another setting of care. Onset of symptoms was June 06, 2018. Risk Assessment: Do you want to hurt yourself or someone else? Patient reports no desire to harm self or others. Initial Sepsis Screen: Does the patient meet any 2 criteria? No. Patient's initial sepsis screen is negative. Does the patient have a suspected source of infection? No. Patient's initial sepsis screen is negative. Care prior to arrival: None. 17:23 Method Of Arrival: Ambulatory la 17:23 Acuity: DARNELL 3 la1 Historical: - Allergies: 17:27 No Known Allergies; la1 - Home Meds: 19:15 BuSpar Oral [Active]; Lamictal Oral [Active]; Xanax Oral [Active]; cc3 - PMHx: 17:27 Anxiety; Headaches; la1 - PSHx: 17:27 abdominal lesions removal; ; Hysterectomy; Cholecystectomy; la1 - Immunization history:: Adult Immunizations up to date. - Social history:: Smoking status: Patient/guardian denies using tobacco. - Ebola Screening: : No symptoms or risks identified at this time. Screenin:40 Abuse screen: Denies threats or abuse. Nutritional screening: No deficits noted. em Tuberculosis screening: No symptoms or risk factors identified. Fall Risk None identified. Assessment: 17:40 General: Appears uncomfortable, Behavior is calm, cooperative, Denies fever, was em released yesterday around 1300 from [facility] after having a bowel obstruction, reports pain this morning. Pain: Complains of pain in right upper quadrant and left upper quadrant Pain currently is 10 out of 10 on a pain scale. Quality of pain is described as pressure, sharp. Neuro: Level of Consciousness is awake, alert, obeys commands, Oriented to person, place, time, situation. Cardiovascular: Capillary refill < 3 seconds Patient's skin is warm and dry. Respiratory: Airway is patent Respiratory effort is even, unlabored, Respiratory pattern is regular, symmetrical. GI: Abdomen is distended, Bowel sounds present X 4 quads. Abd is soft X 4 quads Guarding noted in right upper quadrant and left upper quadrant Reports nausea, vomiting, Patient currently denies diarrhea. Derm: Skin is intact, is healthy with good turgor, Skin is pink, warm \T\ dry. Musculoskeletal: Range of motion: intact in all extremities. 17:45 General: The previous assessment is accurate. Call light remains within reach.. ss 18:28 Reassessment: Patient appears in no apparent distress at this time. Patient and/or em family updated on plan of care and expected duration. Pain level reassessed. Patient is alert, oriented x 3, equal unlabored respirations, skin warm/dry/pink. reports pain and nausea, provider notified, new medication orders received. 19:24 Reassessment: Patient appears in no apparent distress at this time. Patient and/or cc3 family updated on plan of care and expected duration. Pain level reassessed. Patient is alert, oriented x 3, equal unlabored respirations, skin warm/dry/pink. Received this female patient from morning shift [facility] as a case of bowel obstruction for transfer. With IV cannula gauge 20 at the right ACV with ongoing IV fluid of NS 1 liter at 125 mL/hr infusing well. 20:20 Reassessment: Patient appears in no apparent distress at this time. Patient and/or cc3 family updated on plan of care and expected duration. Pain level reassessed. Patient is alert, oriented x 3, equal unlabored respirations, skin warm/dry/pink. Patient refused for NGT placement, charge nurse Katina and Dr. Araya informed. Patient for transfer to [facility], report called and handed over to KARMEN Boydtn for continuity of care. Transfer form completed signed by the patient herself. EMS contacted by city secretary Ann. 21:15 Reassessment: Patient appears in no apparent distress at this time. Patient and/or cc3 family updated on plan of care and expected duration. Pain level reassessed. Patient is alert, oriented x 3, equal unlabored respirations, skin warm/dry/pink. [facility] came for patient transport. Patient left ER vitally stable by EMS stretcher. Patient denies pain at this time. Vital Signs: 17:27 BP 119 / 90; Pulse 85; Resp 16; Temp 98.3; Pulse Ox 98% on R/A; Weight 65.32 kg; Height la1 5 ft. 5 in. (165.10 cm); Pain 10/10; 18:10 BP 120 / 92; Pulse 90; Resp 18; Pulse Ox 99% on R/A; Pain 10/10; em 19:23 BP 128 / 87; Pulse 81; Resp 19 S; Temp 97.9(O); Pulse Ox 98% on R/A; cc3 20:15 BP 121 / 95; Pulse 77; Resp 18 S; Pulse Ox 97% on R/A; cc3 21:07 BP 105 / 71; Pulse 82; Resp 19 S; Pulse Ox 99% on R/A; cc3 17:27 Body Mass Index 23.96 (65.32 kg, 165.10 cm) la1 ED Course: 17:22 Patient arrived in ED. mr 17:22 oSham Mitchell MD is Private Physician. mr 17:26 Triage completed. la1 17:27 Arm band placed on right wrist. la1 17:28 Gibran Jaffe MD is Attending Physician. gs 17:40 Patient has correct armband on for positive identification. Bed in low position. Call em light in reach. Side rails up X2. Adult w/ patient. Pulse ox on. NIBP on. 17:44 Stephanie Andrews, KARMEN is Primary Nurse. ss 17:46 Ismael Simon LVN is Primary Nurse. em 17:50 Initial lab(s) drawn, by me, sent to lab. Inserted saline lock: 20 gauge in right em antecubital area, using aseptic technique. Blood collected. 18:00 EKG done, by ED staff, reviewed by Gibran Jaffe MD. dh3 18:11 CT completed. Patient tolerated procedure well. Patient moved back from CT. bq 18:12 CT Stone Protocol In Process Unspecified. EDMS 20:20 No provider procedures requiring assistance completed. Patient transferred, IV remains cc3 in place. Administered Medications: 18:02 Drug: NS 0.9% 1000 ml Route: IV; Rate: 125 ml/hr; Site: right antecubital; em 20:20 Follow up: Response: No adverse reaction; IV Status: Infusion continued upon transfer cc3 18:35 Drug: fentaNYL (PF) 50 mcg Route: IVP; Site: right antecubital; ss 19:17 Follow up: Response: No adverse reaction; Pain is decreased em 18:35 Drug: Zofran 4 mg Route: IVP; Site: right antecubital; ss 19:17 Follow up: Response: No adverse reaction; Nausea is decreased em 19:40 Drug: fentaNYL (PF) 50 mcg Route: IVP; Site: right antecubital; cc3 20:30 Follow up: Response: No adverse reaction; Pain is decreased cc3 20:14 Drug: Zofran 4 mg Route: IVP; Site: right antecubital; bb 21:00 Follow up: Response: No adverse reaction; Nausea is decreased cc3 Outcome: 19:00 ER care complete, transfer ordered by 20:20 Transferred by ground EMS to [facility], Transfer form completed. cc3 20:20 Condition: stable 20:20 Instructed on the need for transfer, Demonstrated understanding of instructions. 21:19 Patient left the ED. cc3 Signatures: Dispatcher [employer] EDMN Vanessa Rodriguez Betty nisha Simon, Ismael, FRONT EDGER FRONT EDGER em Katina Gutiérrez RN RN bb Smirch, Shelby, RN RN Gregory Ontiveros RN RN la1 Herrera, Deanna formerly [facility] Gibran Jaffe MD MD Hillary Morales cc3 Corrections: (The following items were deleted from the chart) 21:06 20:20 Reassessment: Patient appears in no apparent distress at this time. Patient cc3 and/or family updated on plan of care and expected duration. Pain level reassessed. Patient is alert, oriented x 3, equal unlabored respirations, skin warm/dry/pink. Patient refused for NGT placement, charge nurse Katina and Dr. Araya informed. Patient for transfer to [facility], report called and handed over to KARMEN Rainey for continuity of care. cc3 21:49 21:15 Reassessment: Patient appears in no apparent distress at this time. Patient cc3 and/or family updated on plan of care and expected duration. Pain level reassessed. Patient is alert, oriented x 3, equal unlabored respirations, skin warm/dry/pink. [facility] came for patient transport. Patient left ER vitally stable by EMS stretcher. cc3
--- NOTE | 2018-06-06 19:01 | EDPHYS ---
Physician Documentation [facility] Name: Aruna Conde Age: 53 yrs Sex: Female : 1965 Arrival Date: 06/06/2018 Time: 17:22 Bed 17 Private MD: Soham Mitchell ED Physician Gibran Jaffe HPI: 06/06 18:57 This 53 yrs old Female presents to ER via Ambulatory with complaints of pain gs from surgery. 18:57 The patient presents with abdominal pain that is diffuse, abdominal distention that is gs diffuse. Onset: The symptoms/episode began/occurred yesterday, and became worse and became persistent. Associated signs and symptoms: Pertinent positives: nausea and vomiting, neg flatus. The symptoms are described as crampy. Modifying factors: The symptoms are alleviated by nothing, the symptoms are aggravated by nothing. Severity of pain: At its worst the pain was moderate in the emergency department the pain is unchanged. The patient has experienced similar episodes in the past. The patient has been recently seen by a physician: stephanie. Historical: - Allergies: 17:27 No Known Allergies; la1 - Home Meds: 19:15 BuSpar Oral [Active]; Lamictal Oral [Active]; Xanax Oral [Active]; cc3 - PMHx: 17:27 Anxiety; Headaches; la1 - PSHx: 17:27 abdominal lesions removal; ; Hysterectomy; Cholecystectomy; la1 - Immunization history:: Adult Immunizations up to date. - Social history:: Smoking status: Patient/guardian denies using tobacco. - Ebola Screening: : No symptoms or risks identified at this time. ROS: 18:57 All other systems are negative. gs Exam: 17:59 ECG was reviewed by the Attending Physician. gs 18:57 Head/Face: Normocephalic, atraumatic. Eyes: Pupils equal round and reactive to light, gs extra-ocular motions intact. Lids and lashes normal. Conjunctiva and sclera are non-icteric and not injected. Cornea within normal limits. Periorbital areas with no swelling, redness, or edema. ENT: Nares patent. No nasal discharge, no septal abnormalities noted. Tympanic membranes are normal and external auditory canals are clear. Oropharynx with no redness, swelling, or masses, exudates, or evidence of obstruction, uvula midline. Mucous membranes moist. Neck: Trachea midline, no thyromegaly or masses palpated, and no cervical lymphadenopathy. Supple, full range of motion without nuchal rigidity, or vertebral point tenderness. No Meningismus. Chest/axilla: Normal chest wall appearance and motion. Nontender with no deformity. No lesions are appreciated. Cardiovascular: Regular rate and rhythm with a normal S1 and S2. No gallops, murmurs, or rubs. Normal PMI, no JVD. No pulse deficits. Respiratory: Lungs have equal breath sounds bilaterally, clear to auscultation and percussion. No rales, rhonchi or wheezes noted. No increased work of breathing, no retractions or nasal flaring. Back: No spinal tenderness. No costovertebral tenderness. Full range of motion. Skin: Warm, dry with normal turgor. Normal color with no rashes, no lesions, and no evidence of cellulitis. MS/ Extremity: Pulses equal, no cyanosis. Neurovascular intact. Full, normal range of motion. Neuro: Awake and alert, GCS 15, oriented to person, place, time, and situation. Cranial nerves II-XII grossly intact. Motor strength 5/5 in all extremities. Sensory grossly intact. Cerebellar exam normal. Normal gait. 18:57 Constitutional: The patient appears alert, awake. 18:57 Abdomen/GI: Inspection: distension, that is mild, Palpation: moderate abdominal tenderness, in all quadrants. Vital Signs: 17:27 BP 119 / 90; Pulse 85; Resp 16; Temp 98.3; Pulse Ox 98% on R/A; Weight 65.32 kg; Height la1 5 ft. 5 in. (165.10 cm); Pain 10/10; 18:10 BP 120 / 92; Pulse 90; Resp 18; Pulse Ox 99% on R/A; Pain 10/10; em 19:23 BP 128 / 87; Pulse 81; Resp 19 S; Temp 97.9(O); Pulse Ox 98% on R/A; cc3 20:15 BP 121 / 95; Pulse 77; Resp 18 S; Pulse Ox 97% on R/A; cc3 21:07 BP 105 / 71; Pulse 82; Resp 19 S; Pulse Ox 99% on R/A; cc3 17:27 Body Mass Index 23.96 (65.32 kg, 165.10 cm) la1 MDM: 17:37 Patient medically screened. gs 18:57 Differential diagnosis: bowel obstruction, coronary artery disease, non-specific abd gs pain, Peritonitis. Data reviewed: vital signs, nurses notes. Response to treatment: the patient's symptoms have mildly improved after treatment. 06/06 17:38 Order name: Basic Metabolic Panel; Complete Time: 18:27 06/06 17:38 Order name: CBC with Diff; Complete Time: 18:57 06/06 17:38 Order name: Hepatic Function; Complete Time: 18:27 06/06 17:38 Order name: Lipase; Complete Time: 18:27 06/06 17:38 Order name: CT Stone Protocol; Complete Time: 18:57 06/06 17:38 Order name: IV Saline Lock; Complete Time: 18:01 06/06 17:38 Order name: Labs collected and sent; Complete Time: 18:01 06/06 17:38 Order name: EKG - Nurse/Tech; Complete Time: 18:01 EC:59 Rate is 74 beats/min. Rhythm is regular. MO interval is normal. QRS interval is normal. gs QT interval is normal. T waves are Normal. No ST changes noted. Clinical impression: Normal ECG. Interpreted by me. Administered Medications: 18:02 Drug: NS 0.9% 1000 ml Route: IV; Rate: 125 ml/hr; Site: right antecubital; em 20:20 Follow up: Response: No adverse reaction; IV Status: Infusion continued upon transfer cc3 18:35 Drug: fentaNYL (PF) 50 mcg Route: IVP; Site: right antecubital; ss 19:17 Follow up: Response: No adverse reaction; Pain is decreased em 18:35 Drug: Zofran 4 mg Route: IVP; Site: right antecubital; ss 19:17 Follow up: Response: No adverse reaction; Nausea is decreased em 19:40 Drug: fentaNYL (PF) 50 mcg Route: IVP; Site: right antecubital; cc3 20:30 Follow up: Response: No adverse reaction; Pain is decreased cc3 20:14 Drug: Zofran 4 mg Route: IVP; Site: right antecubital; bb 21:00 Follow up: Response: No adverse reaction; Nausea is decreased cc3 Disposition: 06/06/18 19:00 Transfer ordered to [facility]. Diagnosis is Other and unspecified intestinal obstruction. - Reason for transfer: Higher level of care. - Accepting physician is tbd. - Condition is Stable. - Problem is new. - Symptoms have improved. Critical care time excluding procedures: 18:57 Critical care time: Bedside Care: 10 minutes, Consultation: 10 minutes, Family gs Intervention: 10 minutes. Total time: 30 minutes Signatures: Dispatcher [employer] Ismael Stock, PIERCING MILL OPERATOR PIERCING MILL OPERATOR em Katina Gutiérrez, KARMEN RN Stephanie Doan RN RN ss Gregory Ontiveros RN RN la1 Gibran Jaffe MD MD gs Cordel, Charlene cc3 Corrections: (The following items were deleted from the chart) 19:48 19:21 NG Tube ordered. gs cc3 21:19 19:00 06/06/2018 19:00 Transfer ordered to [facility]. Diagnosis is cc3 Other and unspecified intestinal obstruction. Reason for transfer: Higher level of care. Accepting physician is tbd. Condition is Stable. Problem is new. Symptoms have improved. gs
[2018-06-06 22:09] VITALS: TEMP 97.9
[2018-06-06 22:11] VITALS: BP 105/71; O2SAT 99
--- NOTE | 2018-06-07 20:20 | EKG ---
Test Date: 2018-06-06 Test Time: 17:55:08 [employer] [place] Operator: ALEJANDRO MEASUREMENT RESULTS: Intervals: Rate: 74 UT: 166 QRSD: 86 QT: 364 QTc: 404 [place]: P: 59 UT: 166 QRS: 72 T: 75 INTERPRETIVE STATEMENTS: Normal sinus rhythm Normal ECG Compared to ECG 08/05/2015 16:55:56 No significant changes Electronically Signed On 06-07-18 20:19:03 CDT by Kanu Montejo
== END 2018-06-06 21:19 | disposition short-term general hospital (02) ==
LOC: ER 17:20
DX: K56.699 Other intestinal obstruction unspecified as to partial versus complete obstruction (principal); F41.9 Anxiety disorder, unspecified
CPT/HCPCS: 36415; 74176; 76377; 80048; 80076; 83690; 85025; 93005; 96361; 96374; 96375; 99285; J2405; J3010; J7030